=== PATIENT | female | born 1975 | race Caucasian/White ===

== ENCOUNTER → 2021-06-21 10:26 | Outpatient (CLI) | payer OTHER, SELFPAY ==
--- NOTE | ~2021-06-21 | MM_ITS ---
EXAMINATION: MM screening [facility] BI w joel HISTORY: Screening TECHNIQUE: Craniocaudal and mediolateral oblique 3-D tomosynthesis images were obtained and synthetic 2-D images were generated. CAD analysis was submitted and interpreted. COMPARISON: Comparison to multiple prior studies sequentially, with oldest reviewed study dated 06/2013. BREAST PARENCHYMAL COMPOSITION: There are scattered areas of fibroglandular density. FINDINGS: There is no evidence of suspicious mass, calcification, or architectural distortion to sugg est malignancy in either breast. There has been no suspicious interval change. IMPRESSION: 1. No mammographic evidence of malignancy. 2. Recommend routine screening mammography in one year. BI-RADS Category 1: Negative Reviewed, dictated and finalized at location A.
== END ==
PROVIDERS: PCP Internal Medicine Infectious Disease; Visit Provider Nurse Practitioner
DX: Z12.31 Encounter for screening mammogram for malignant neoplasm of breast (principal)
CPT/HCPCS: 77063; 77067

== ENCOUNTER → 2022-04-12 11:24 | Outpatient (CLI) | payer OTHER, SELFPAY ==
--- NOTE | ~2022-04-12 | US_ITS ---
EXAMINATION: US transvaginal DATE: 04/12/2022 11:45 INDICATION: Menorrhagia Comparison:No prior studies for comparison. TECHNIQUE: Multiple endovaginal sonographic images of the pelvis performed. FINDINGS: The uterus measures 8.8 x 4.3 x 5.2 cm. The endometrial complex measures 6 mm. The right ovary measures 2.3 x 1.6 x 1.9 cm and the left ovary measures 3.2 x 1.6 x 2.8 cm. There ar e small follicles in each ovary. Normal doppler signal in both ovaries. There is no free fluid in the pelvis. There are no abnormal masses seen on either side. IMPRESSION: 1. Unremarkable pelvic ultrasound. Reviewed, dictated and finalized at location A.
== END ==
PROVIDERS: PCP Internal Medicine Infectious Disease; Visit Provider Nurse Practitioner
DX: N92.0 Excessive and frequent menstruation with regular cycle (principal)
CPT/HCPCS: 76830

== ENCOUNTER 2022-05-28 02:59 | Day surgery (SDC) | payer OTHER, SELFPAY ==
[2022-05-16 14:42] VITALS: BMI 34.7
--- NOTE | 2022-05-16 14:51 | PC.NURSE ---
Report to the Outpatient Waiting Room, entrance under the green pavilion located off [facility], at time _1145_ on date _[id number]_. OR Time: _145pm_. - You and your visitor will be asked a series of questions to screen for COVID 19 for your protection. - Only one visitor is allowed at this time. - The patient visitor is requested to leave or wait in car when not with patient. - A mask is required within the hospital. Patients may have clear liquids (water, carbonated beverages, clear teas, apple juice) until 3 hours prior to surgery with a maximum of 20 ounces. - No food from midnight until time of surgery Take the following medications with a SIP of water the morning of surgery: ___None Medications to discontinue per physician All vitamins and supplements Date to take last [id number] Please no make-up, nail angolan, hairspray, perfume, deodorant, or body powder the day of surgery. No jewelry (including any body piercings) or valuables the day of surgery, leave them at home. Please take a shower or bath the night before, or the morning of, surgery with an antibacterial soap. Wear comfortable, loose fitting clothing. - Jewelry must be removed prior to entering the operating room. Rings and piercings that are not removed may be cut off. - The hospital will not accept responsibility for valuables. - Please leave all valuables, including medications, at home the day of surgery. If you are going home after surgery, a licensed putaway driver must drive you home. - NO public transportation without another adult. - We recommend that an adult stay with you for 24 hours following discharge. - We also recommend that you do not drive, make important decision, drink alcoholic beverages, or take any drugs that were not prescribed by your health care provider for at least 24 hours after your discharge time. Follow any additional instructions given to you from your surgeon. If you or anyone in your household have experienced Covid symptoms in the past week, please notify your surgeon or the nurse liaison at the phone number below for possible testing. Telephone instructions given to __Patient___and asked if any additional questions and then verbalized understanding. Patient advised to call surgeon office or pre surgery nurse liaison [phone] if any additional questions.
--- NOTE | 2022-05-28 09:42 | WPDHPUPDATE1 ---
History and Physical Update Update Date/Time: 05/28/22 09:42 History and Physical has been reviewed, including an updated exam of the patient. There are NO changes in the patient's condition. Risks, benefits, and alternatives have been discussed and questions answered. Patient agrees to proceed with procedure.
--- NOTE | 2022-05-28 09:42 | PM.HPGS ---
History of Present Illness History of Present Illness Consent: Risks, benefits, and alternatives have been discussed and questions answered. Patient agrees to proceed with procedure. Chief complaint: Menorrhagia Narrative: Yahaira Worthington is a 46 year old female with heavy cycles. Cycles are regular every 25 days but quite heavy changing pad every hour for 24hours. Pelvic ultrasound is unremarkable and hemoglobin is 12.3. It was recommended to proceed with D&C hysteroscopy to further evaluate. Risks of infection, bleeding, perforation, and possible pathology are reviewed. Patient voices understanding and agrees to proceed. Review of Systems Constitutional: Constitutional: Reports night sweats Genitourinary: Genitourinary: Reports urinary incontinence [facility] Past Medical History Medical History (Updated 05/28/22 @ 09:47 by Latonai Guerrero MD) History of cervical dysplasia Status post cryotherapy in [id number]'s [facility] (normal spontaneous vaginal delivery) X3 Surgical History Surgical History (Updated 05/28/22 @ 09:46 by Latonia Guerrero MD) History of Social History Social History Smoking status: Never smoker Living arrangements: with family Spiritual care concerns: No Meds Home Medications and Allergies Home Medications Medication Instructions Recorded Confirmed Type Drenamin 1 tab-cap PO TID 05/16/22 History berberine-herbal comb no.18 capsule 1 cap PO BID 05/16/22 05/16/22 History cetirizine 10 mg tablet 10 mg PO QAM 05/16/22 05/16/22 History cholecalciferol (vitamin D3) 125 125 mcg PO DAILY 05/16/22 05/16/22 History mcg (5,000 unit) tablet (Vitamin D3) montelukast 10 mg tablet 10 mg PO QAM 05/16/22 05/16/22 History multivitamin 1 tablet PO DAILY 05/16/22 05/16/22 History Allergies Allergy/AdvReac Type Severity Reaction Status Date / Time amoxicillin Allergy Severe Rash Verified 05/16/22 14:37 promethazine AdvReac Mild Nausea and Verified 05/16/22 14:37 Vomiting Exam Const: General: healthy appearing and alert Orientation/consciousness: patient oriented x3 Resp: Effort & Inspection: normal respiratory effort Auscultation: clear to auscultation bilaterally Cardio: Rate: regular rate Rhythm: regular rhythm GI: GI Palp: Yes Soft to palpation, No Tenderness to palpation present (GI) and No Palpable mass present : External Female Exam: normal external appearance Speculum Exam - Vagina: normal vaginal discharge and other (2nd degree cystocele and rectocele) Speculum Exam - Cervix: normal appearance of the cervix Bimanual exam- vagina & uterus: uterine size normal and consistency normal Bimanual Exam- Adnexa, other: normal adnexae and No adnexal tenderness Neuro: General: patient oriented x3 Assessment and Plan Assessment and plan (1) Menorrhagia: Code(s): N92.0 - Excessive and frequent menstruation with regular cycle Status: Acute Assessment and Plan: Plan to proceed with D&C hysteroscopy
--- NOTE | 2022-05-28 12:28 | P.PNAN_ITS ---
Anes - Initial Pre Proc Eval Procedure: Operation Date: 05/28/22 13:45 Proposed Procedures p Hysteroscopy Dilation and Curettage - Latonia Guerrero MD Date/Time: 05/28/22 12:28 Surgeon: Latonia Guerrero MD Pre Op Diagnosis: Menorrhagia Patient Data Age: 46 Gender: F Height: 1.68 m Weight: 97.7 kg Allergies Allergy/AdvReac Type Severity Reaction Status Date / Time amoxicillin Allergy Severe Rash Verified 05/16/22 14:37 promethazine AdvReac Mild Nausea and Verified 05/16/22 14:37 Vomiting Home Medications Medication Instructions Recorded Confirmed Type Drenamin 1 tab-cap PO TID 05/16/22 History berberine-herbal comb no.18 capsule 1 cap PO BID 05/16/22 05/16/22 History cetirizine 10 mg tablet 10 mg PO QAM 05/16/22 05/16/22 History cholecalciferol (vitamin D3) 125 125 mcg PO DAILY 05/16/22 05/16/22 History mcg (5,000 unit) tablet (Vitamin D3) montelukast 10 mg tablet 10 mg PO QAM 05/16/22 05/16/22 History multivitamin 1 tablet PO DAILY 05/16/22 05/16/22 History Patient hx anesthesia problems: none Family hx anesthesia problems: none Results Review: All pre-operative results and documents have been reviewed as part of the pre- operative evaluation. [facility] Past Medical History Medical History (Updated 05/28/22 @ 09:47 by Latonia Guerrero MD) History of cervical dysplasia Status post cryotherapy in [id number]'s (normal spontaneous vaginal delivery) X3 Surgical History Surgical History (Updated 05/28/22 @ 09:46 by Latonia Guerrero MD) History of Social History Social History Smoking status: Never smoker Living arrangements: with family Spiritual care concerns: No Anes - Eval Final PreProcedure Day of Procedure 05/28/22 12:28 Patient weight: obese Heart: regular rate and rhythm Lungs: clear to auscultation and normal air movement Airway: Mallampati scale class II Neurological: alert and oriented Last oral intake: >/= 8 hours ASA classification: II Emergent: no Anesthetic plan: proceed Anesthesia type and monitoring: general GIVS Results Review: All pre-operative results and documents have been reviewed as part of the pre- operative evaluation. Informed Consent: The patient's anesthetic plan and its attendant risks and benefits were discussed with the patient/family/POA. Questions were solicited and answers provided to the satisfaction of the patient/family/POA.
[2022-05-28] MEDS: LACTATED RINGERS 1,000 ML 30 ML IV CONT ×2 (12:30→14:57)
[2022-05-28] MEDS: ACETAMINOPHEN 500 MG TABLET 1000 MG PO (12:38)
[2022-05-28 13:00] VITALS: BP 118/69; PULSE 70; RESP 16; TEMP 36.8; O2SAT 99
[2022-05-28] MEDS: KETOROLAC 30 MG/ML VIAL (*BKC) IV PUSH (13:46)
--- NOTE | 2022-05-28 13:53 | W.PM.PROC2 ---
Procedure Note - Detailed Date of Procedure 05/28/22 Pre-op Diagnosis Menorrhagia Post-op Diagnosis Same Procedure Performed D&C hysteroscopy Surgeon Latonia Guerrero MD Anesthesia MAC and Local Findings Cervical stenosis, grossly normal-appearing endometrium, uterus sounds to 9cm and descends to the ischial spines with traction Description of Procedure The patient is taken to the operating room and placed under anesthesia in the dorsal lithotomy position. She was prepped and draped in the usual sterile fashion. [place] speculum was placed in the vagina and the cervix was grasped on the anterior lip with a tenaculum. With traction, the uterus comes down to this ischial spines. Cervix is injected in each quadrant with 1% lidocaine. The uterus is sounded to 9cm. The cervix is serially dilated and noted to be somewhat stenotic. The diagnostic hysteroscope was placed with no abnormalities noted it is removed. Medium sharp curette is used to curette the endometrium until a good uterine cry was noted in all areas. All instruments are removed. Sponge, instruments, and needle counts are correct per the OR staff. Patient was taken to the recovery room in stable condition after being awakened from anesthesia. Estimated Blood Loss 5 Drains No Packing No Pathology Yes (Endometrial curettings) Complications No immediate complications Condition Stable Disposition PACU
[2022-05-28 13:54] VITALS: BP 112/59; PULSE 61; RESP 16; O2SAT 91
[2022-05-28 14:25] VITALS: BP 119/65; PULSE 61; O2SAT 97
[2022-05-28 14:55] VITALS: BP 126/65; PULSE 59
[2022-05-28] MEDS: ONDANSETRON INJ 4 MG/2 ML VIAL IV PUSH (14:58)
[2022-05-28 15:20] VITALS: BP 112/68; PULSE 60
== END 2022-05-28 15:27 | disposition home or self-care (01) ==
PROVIDERS: PCP Internal Medicine Infectious Disease; Visit Provider Obstetrics & Gynecology Gynecology
PROC: 0U5B8ZZ Destruction of Endometrium, Via Natural or Artificial Opening Endoscopic (ICD-10-PCS; CPT 58563; principal; 2022-05-28 13:45)
DX: N92.0 Excessive and frequent menstruation with regular cycle (principal)
CPT/HCPCS: 58558; 88305; A9270; J1100; J1885; J2250; J2405; J2704; J3010; J7120

== ENCOUNTER → 2022-06-23 07:57 | Outpatient (CLI) | payer OTHER, SELFPAY ==
--- NOTE | ~2022-06-23 | MM_ITS ---
EXAMINATION: MM screening [facility] BI w joel HISTORY: Screening mammogram TECHNIQUE: Craniocaudal and mediolateral oblique 3-D tomosynthesis images were obtained and synthetic 2-D images were generated. CAD analysis was submitted and interpreted. COMPARISON: 07/11/2021, 06/28/2016 BREAST PARENCHYMAL COMPOSITION: The breasts are heterogeneously dense, which may obscure small masses . FINDINGS: There is no suspicious mass, calcification, or architectural distortion to suggest malignan cy in either breast. There has been no suspicious interval change. IMPRESSION: 1. No mammographic evidence of malignancy. 2. Recommend routine screening mammography in one year. BI-RADS Category 1: Negative Reviewed, dictated and finalized at location A.
== END ==
PROVIDERS: PCP Internal Medicine Infectious Disease; Visit Provider Nurse Practitioner
DX: Z12.31 Encounter for screening mammogram for malignant neoplasm of breast (principal)
CPT/HCPCS: 77063; 77067

== ENCOUNTER 2023-01-05 07:06 | Outpatient (CLI) | payer OTHER, SELFPAY ==
[2023-01-05 07:49] LABS: Hematocrit 38.2 % (37.0-47.0)
== END 2023-01-05 07:07 | disposition home or self-care (01) ==
PROVIDERS: PCP Internal Medicine Infectious Disease; Visit Provider Obstetrics & Gynecology Gynecology
DX: N92.0 Excessive and frequent menstruation with regular cycle (principal); Z01.818 Encounter for other preprocedural examination
CPT/HCPCS: 36415; 85014; 85018; 86850; 86900; 86901

== ENCOUNTER 2023-01-11 01:24 | Day surgery (SDC) | payer OTHER, SELFPAY ==
[2022-12-31 11:25] VITALS: BMI 35.5
--- NOTE | 2022-12-31 11:31 | PC.NURSE ---
Report to the Outpatient Waiting Room, entrance under the green pavilion located off [facility], at time 9:00 on date 01/11/23. Planned Procedure Time: 11:00. Time changes happen often and if your time is changed the preop area will call you the afternoon before. - You and your visitor will be asked to self-screen and do not enter if you have any COVID symptoms. - Only one visitor is requested with a max of two and NO children visitors are allowed at this time. - The patient visitor may be requested to leave or wait in car when not with patient due to distancing restrictions. - A mask is optional within the hospital at this time. Patients may have clear liquids (water, carbonated beverages, clear teas, apple juice) until 3 hours prior to surgery (8:00) with a maximum of 20 ounces. - No food from midnight until time of surgery Take the following medications with a SIP of water the morning of surgery: N/A DO NOT STOP ANY OF YOUR OTHER PRESCRIPTION MEDICATIONS PRIOR TO SURGERY EXCEPT THE FOLLOWING Medications to discontinue per physician: N/A Date to take last dose: N/A Please no make-up, nail palauan, hairspray, perfume, deodorant, or body powder the day of surgery. No jewelry (including any body piercings) or valuables the day of surgery, leave them at home. Please take a shower or bath the night before, or the morning of, surgery with an antibacterial soap. Wear comfortable, loose fitting clothing. - Jewelry must be removed prior to entering the operating room. Rings and piercings that are not removed may be cut off. - The hospital will not accept responsibility for valuables. - Please leave all valuables, including medications, at home the day of surgery. If you are going home after surgery, a licensed stacker driver must drive you home. - NO public transportation without another adult if you receive anesthesia. - We recommend that an adult stay with you for 24 hours following discharge. - We also recommend that you do not drive, make important decision, drink alcoholic beverages, or take any drugs that were not prescribed by your health care provider for at least 24 hours after your discharge time. Follow any additional instructions given to you from your surgeon. If you or anyone in your household have experienced Covid symptoms in the past week, please notify your surgeon or the nurse liaison at the phone number below for possible testing. Telephone instructions given to PT - GIULIA MOLINA and asked if any additional questions and then verbalized understanding. Patient advised to call surgeon office or pre surgery nurse liaison [phone] if any additional questions.
--- NOTE | 2023-01-10 08:22 | PM.IMHP ---
H&P: HPI History of Present Illness Date/Time: 01/10/23 08:22 Chief Complaint: stress incontinence Narrative: she is having hysterectomy and possible and P repair for dysfunctional uterine bleeding. I will perform a concomitant stress incontinence procedure Review of Systems Review of Systems: All systems reviewed & are unremarkable except as noted in HPI and below PMFSH Past Medical History Medical History History of cervical dysplasia Status post cryotherapy in [id number]'s (normal spontaneous vaginal delivery) X3 Surgical History Surgical History History of Social History Social History Smoking status: Never smoker Alcohol intake: never Substance use: never Substance use type: does not use Living arrangements: with family Spiritual care concerns: No Meds Home Medications and Allergies Home Medications Medication Instructions Recorded Confirmed Type cetirizine 10 mg tablet 10 mg PO QAM 05/16/22 12/31/22 History cholecalciferol (vitamin D3) 125 125 mcg PO DAILY 05/16/22 12/31/22 History mcg (5,000 unit) tablet (Vitamin D3) montelukast 10 mg tablet 10 mg PO QAM 05/16/22 12/31/22 History multivitamin 1 tablet PO DAILY 05/16/22 12/31/22 History L.acidop,casei,lactis,rham-B.lact,john 1 cap PO DAILY 12/31/22 12/31/22 History 625 mg (10 billion cell) capsule (Advanced Probiotic) Allergies Allergy/AdvReac Type Severity Reaction Status Date / Time amoxicillin Allergy Severe Rash Verified 12/31/22 11:22 promethazine AdvReac Mild Nausea and Verified 12/31/22 11:22 Vomiting Exam Narrative: no acute distress normal breathing alert orient x3 urethral mobility Assessment and Plan Assessment and plan (1) SOFYA (stress urinary incontinence, female): Code(s): N39.3 - Stress incontinence (female) (male) Status: Acute Assessment and Plan: urethral sling. Understands risks of bleeding, infection, damage to the very tract, vaginal mesh extrusion, urinary tract mesh erosion, obstructive voiding requiring secondary procedure, hip and leg pain, dyspareunia, recurrent or persistent incontinence. She agrees to proceed
[2023-01-11] VITALS (10 sets, daily range): BP systolic 105–128; BP diastolic 56–76; PULSE 58–71; RESP 11–18; TEMP 36.3–37.1; O2SAT 94–100
--- NOTE | 2023-01-11 07:08 | WPDHPUPDATE1 ---
History and Physical Update Update Date/Time: 01/11/23 07:08 History and Physical has been reviewed, including an updated exam of the patient. There are NO changes in the patient's condition. Risks, benefits, and alternatives have been discussed and questions answered. Patient agrees to proceed with procedure.
[2023-01-11] MEDS: LACTATED RINGERS 1,000 ML 30 ML IV CONT ×3 (09:50→15:15)
[2023-01-11] MEDS: ACETAMINOPHEN 500 MG TABLET 1000 MG PO (09:51)
[2023-01-11] MEDS: KETOROLAC 15 MG/ML VIAL (*BKC) IV PUSH (09:51)
--- NOTE | 2023-01-11 10:21 | PM.IMHP ---
H&P: HPI History of Present Illness Date/Time: 01/11/23 10:21 Chief Complaint: menorrhagia, cystocele, rectocele, GSI Narrative: The patient is a 47 yo A2 with regular and heavy cycles. Patient underwent D&C hysterscopy with benign findings. In addition, she has had worsening GSI and vaginal pressure. She attempted to use pessary but it made the incontinence worse. She has decided on surgical management. Plan laparoscopic assisted vaginal hysterectomy with anterior and posterior vaginal repair. In addition, Dr. Grant will be performing a urethral sling prior to my portion. Risks of infection, bleeding, injury to internal organs (khanh. bowel, bladder, ureters, ovaries), general anesthesia, and DVT were discussed. Risks of urethral sling were reviewed by Dr. Grant. Patient voices understanding and agrees to proceed. Review of Systems Constitutional: Constitutional: Reports night sweats Genitourinary: Genitourinary: Reports urinary incontinence PMFSH Past Medical History Medical History (Updated 01/11/23 @ 10:36 by Latonia Guerrero MD) History of cervical dysplasia Status post cryotherapy in [id number]'s (normal spontaneous vaginal delivery) X3 Surgical History Surgical History (Updated 01/11/23 @ 10:29 by Latonia Guerrero MD) History of History of hysteroscopy 05/09 Family History Family History (Updated 01/11/23 @ 10:34 by Latonia Guerrero MD) Father Diabetes mellitus Hypertension Mother Small bowel carcinoma Valero syndrome Sibling Valero syndrome Social History Social History Smoking status: Never smoker Alcohol intake: never Substance use: never Substance use type: does not use Living arrangements: with family Spiritual care concerns: No Meds Home Medications and Allergies Home Medications Medication Instructions Recorded Confirmed Type cetirizine 10 mg tablet 10 mg PO QAM 05/16/22 12/31/22 History cholecalciferol (vitamin D3) 125 125 mcg PO DAILY 05/16/22 12/31/22 History mcg (5,000 unit) tablet (Vitamin D3) montelukast 10 mg tablet 10 mg PO QAM 05/16/22 12/31/22 History multivitamin 1 tablet PO DAILY 05/16/22 12/31/22 History L.acidop,casei,lactis,rham-B.lact,john 1 cap PO DAILY 12/31/22 12/31/22 History 625 mg (10 billion cell) capsule (Advanced Probiotic) Allergies Allergy/AdvReac Type Severity Reaction Status Date / Time amoxicillin Allergy Severe Rash Verified 01/11/23 09:28 promethazine AdvReac Mild Nausea and Verified 01/11/23 09:28 Vomiting Vital Signs Vital Signs - 24 hr 01/11/23 09:13 Temperature 98.0 F Pulse Rate 71 Respiratory Rate 18 Blood Pressure 127/74 Pulse Oximetry 100 Oxygen Delivery Room Air Exam Const: General: healthy appearing and alert Orientation/consciousness: patient oriented x3 Resp: Effort & Inspection: normal respiratory effort GI: GI Palp: Yes Soft to palpation, No Tenderness to palpation present (GI) and No Palpable mass present : External Female Exam: normal external appearance Speculum Exam - Vagina: normal appearance of the vagina, normal vaginal discharge and other (second degree cystocele and rectocele) Speculum Exam - Cervix: normal appearance of the cervix Bimanual exam- vagina & uterus: uterine size normal and consistency normal Bimanual Exam- Adnexa, other: normal adnexae and No adnexal tenderness Neuro: General: patient oriented x3 Assessment and Plan Assessment and plan (1) Menorrhagia: Code(s): N92.0 - Excessive and frequent menstruation with regular cycle Status: Acute Assessment and Plan: plan LAVH (2) Cystocele with rectocele: Code(s): N81.10 - Cystocele, unspecified; N81.6 - Rectocele Status: Acute Assessment and Plan: plan anterior and posterior repair (3) SOFYA (stress urinary incontinence, female): Code(s): N39.3 - Stress incon
--- NOTE | 2023-01-11 10:50 | P.PNAN_ITS ---
Anes - Initial Pre Proc Eval Procedure: Operation Date: 01/11/23 11:00 Proposed Procedures p Urethral Sling - Bryce Grant MD s Laparoscopic Assisted Vaginal Hysterectomy, Anterior and Posterior Vaginal Repair - Latonia Guerrero MD Date/Time: 01/11/23 10:50 Surgeon: Bryce Grant MD Pre Op Diagnosis: stress incontinence Patient Data Age: 47 Gender: F Height: 1.68 m Weight: 102.5 kg Last Vital Signs Temp 98.0 F 01/11/23 09:13 Pulse 71 01/11/23 09:13 Resp 18 01/11/23 09:13 BP 127/74 01/11/23 09:13 Pulse Ox 100 01/11/23 09:13 O2 Del Method Room Air 01/11/23 09:13 Allergies Allergy/AdvReac Type Severity Reaction Status Date / Time amoxicillin Allergy Severe Rash Verified 01/11/23 09:28 promethazine AdvReac Mild Nausea and Verified 01/11/23 09:28 Vomiting Home Medications Medication Instructions Recorded Confirmed Type cetirizine 10 mg tablet 10 mg PO QAM 05/16/22 12/31/22 History cholecalciferol (vitamin D3) 125 125 mcg PO DAILY 05/16/22 12/31/22 History mcg (5,000 unit) tablet (Vitamin D3) montelukast 10 mg tablet 10 mg PO QAM 05/16/22 12/31/22 History multivitamin 1 tablet PO DAILY 05/16/22 12/31/22 History L.acidop,casei,lactis,rham-B.lact,john 1 cap PO DAILY 12/31/22 12/31/22 History 625 mg (10 billion cell) capsule (Advanced Probiotic) Patient hx anesthesia problems: none Family hx anesthesia problems: none Results Review: All pre-operative results and documents have been reviewed as part of the pre- operative evaluation. PMFSH Past Medical History Medical History (Updated 01/11/23 @ 10:36 by Latonia Guerrero MD) History of cervical dysplasia Status post cryotherapy in [id number]'s (normal spontaneous vaginal delivery) X3 Surgical History Surgical History (Updated 01/11/23 @ 10:29 by Latonia Guerrero MD) History of History of hysteroscopy 05/09 Family History Family History (Updated 01/11/23 @ 10:34 by Latonia Guerrero MD) Father Diabetes mellitus Hypertension Mother Small bowel carcinoma Valero syndrome Sibling Valero syndrome Social History Social History Smoking status: Never smoker Alcohol intake: never Substance use: never Substance use type: does not use Living arrangements: with family Spiritual care concerns: No Anes - Eval Final PreProcedure Day of Procedure 01/11/23 10:50 Patient weight: obese Heart: regular rate and rhythm Lungs: clear to auscultation Airway: Mallampati scale class II Neurological: alert and oriented Last oral intake: >/= 8 hours ASA classification: II Emergent: no Anesthetic plan: proceed Anesthesia type and monitoring: general ETT and standard monitoring Results Review: All pre-operative results and documents have been reviewed as part of the pre-operative evaluation. Informed Consent: The patient's anesthetic plan and its attendant risks and benefits were discussed with the patient/family/POA. Questions were solicited and answers provided to the satisfaction of the patient/family/POA.
[2023-01-11] MEDS: ceFAZolin 2 GM/D5W 50 ML 2 GM/50 ML BAG IVPB (11:14)
[2023-01-11] MEDS: BUPIVACAINE/EPINEPHRINE 0.5% 10 ML VIAL INFILTRATE (11:45)
--- NOTE | 2023-01-11 11:56 | P.OP_ITS ---
Procedure Note - Detailed Date of Procedure 01/11/23 Pre-op Diagnosis stress incontinence Post-op Diagnosis Same Procedure Performed mid urethral sling cystoscopy Surgeon Bryce Grant MD Anesthesia General Indications This is a female with confirm stress urinary incontinence. She desires surgical correction. She understands the risks of bleeding, infection, injury to the urinary tract, vaginal mesh extrusion, urinary tract mesh erosion, obstructive voiding requiring a secondary procedure, hip and leg pain, dyspareunia, inability to improve overactive bladder symptoms. She agrees to proceed. Description of Procedure She was correctly identified. Informed consent obtained. She was brought the operating room. She was given appropriate anesthesia. She was given appropriate perioperative antibiotics. A time-out performed. I marked out the site of the inner thigh incisions. I anesthetized the skin and made those incisions. I anesthetized the anterior vaginal wall over the mid urethra. I made a 1 cm incision. I dissected out laterally taking great care not to injure the refilled vaginal wall. I passed the helical trocars. First on the left. Then on the right. I did this from the thigh incision towards the vaginal incision. The sling was connected to the trocars and brought out through the thigh incision. I tensioned the sling appropriately. I cut and the plastic sheaths. I then closed the incision with 2 0 Vicryl. On cystoscopy there is no tumors or surgical artifact. There was no surgical artifact in the urethra. I cut the excess sling material. Close incisions with glue. She was then turned over to her manager wealth management for the remainder of her surgery. Implants Urethral sling Drains No Packing No Pathology None sent Complications No immediate complications Condition Stable Disposition PACU
[2023-01-11] MEDS: LIDO 1%/EPINEPHRINE 1:100,000 20 ML VIAL 10 ML INFILTRATE (12:11)
--- NOTE | 2023-01-11 13:47 | W.PM.PROC2 ---
Procedure Note - Detailed Date of Procedure 01/11/23 Pre-op Diagnosis Menorrhagia cystocele and rectocele stress incontinence Post-op Diagnosis Same Procedure Performed diagnostic laparoscopy, total vaginal hysterectomy, anterior-posterior vaginal repair urethral sling performed by Dr. Grant Surgeon Latonia Guerrero MD Anesthesia General Findings laparoscopy revealed no adhesions; with traction the uterus descends to the spines +3; small upper vaginal second-degree cystocele; large 2nd degree rectocele Description of Procedure The patient is taken to the operating room and placed under anesthesia in the dorsal lithotomy position. Patient had just completed the urethral sling by Dr. Grant and Sweet catheter was already in place. The bivalve speculum was placed in the vagina and the cervix grasped on the anterior lip with a tenaculum. The acorn manipulator was also placed. The speculum was removed. Attention was then turned to the abdomen where a vertical skin incision was made at the base of the umbilicus. The abdomen is tented and the Veress needle placed. Opening patient pressure was 3mmHg. Water drop test is normal. Pneumoperitoneum was obtained to a patient pressure of 15mmHg. The Veress needle was then removed and the 5mm Optiview trocar was placed. Intra-abdominal placement was confirmed with the laparoscope. The patient was placed in Trendelenburg and a 5mm skin incision was made above the symphysis pubis in the midline. The 5mm trocars placed under direct visualization. The blunt probe was used to investigate the pelvis with no abnormalities noted. The bladder flap appears to have minimal adhesions. The trocars were left in place but the pneumoperitoneum was reduced. Attention was returned to the vagina. The acorn manipulator is removed. The medium weighted speculum was placed posteriorly and a Annalise retractor placed anteriorly. The vaginal mucosa was injected in a circumferential manner around the cervix with 1% lidocaine with epinephrine. A scalpel then used to incise in a circumferential manner. The vaginal mucosa was dissected off anteriorly using sharp and blunt dissection. Once the peritoneum was entered the Annalise retractor was replaced intraperitoneally E. The vaginal mucosa was dissected off posteriorly using sharp and blunt dissection. Once the peritoneum was entered, the long weighted speculum was placed. The cardinal and uterosacral ligaments were serially clamped, transected, suture ligated with 0 Vicryl, and tagged for future use. The uterine vessels are clamped, transected, and suture ligated with 0 Vicryl. The posterior fundus is grasped with a sharp towel clamp and delivered through the cul-de-sac. The utero-ovarian ligament is clamped, transected, and suture ligated with 0 Vicryl. The specimen was amputated. Good hemostasis is noted at all pedicles except the right uterosacral ligament. This is grasped with a Z clamp as the previous tag had been pulled through the pedicle was tied off using 0 Vicryl with 2 Annalise stitches for hemostasis. All pedicles are easily visible and noted to be hemostatic. The peritoneum was grasped anteriorly with a Peon. The long weighted speculum was removed and the medium weighted speculum was placed. The posterior peritoneum was grasped with a Peon. The peritoneum was closed using 0 Ethibond in a pursestring fashion incorporating the previously tagged the uterosacral and cardinal ligaments. All tags are were cut. The vaginal cuff was closed using 0 Vicryl in a running locked fashion. Additional arekom-wd-drrea suture was required in the midline for hemostasis. Attention was then turned to the anterior vagina. There is a very small upper vaginal cystocele grasped with Allis clamps at 5 and 7:00 a.m.. The scalpel was used to incise in a horizontal manner between the Allis clamps. The in incision in the midline is made with Metzenbaum scissors. The dissecti
--- NOTE | 2023-01-11 14:01 | PM.DS ---
DS: Admitting Diagnosis Discharge Date 01/12/23 <Javon Campbell MD - Last Filed: 01/12/23 10:08> Admitting Diagnosis menorrhagia cystocele and rectocele genuine stress incontinence <Latonia Guerrero MD - Last Filed: 01/11/23 14:03> DS: Discharge Diagnosis Discharge Diagnosis (1) Status post laparoscopic assisted vaginal hysterectomy (LAVH): Code(s): Z90.710 - Acquired absence of both cervix and uterus <Latonia Guerrero MD - Last Filed: 01/11/23 14:03> Status: Acute <Latonia Guerrero MD - Last Filed: 01/11/23 14:03> Assessment and Plan: status post anterior and posterior vaginal repair status post urethral sling by Dr. Grant <Latonia Guerrero MD - Last Filed: 01/11/23 14:03> (2) Menorrhagia: Code(s): N92.0 - Excessive and frequent menstruation with regular cycle <Latonia Guerrero MD - Last Filed: 01/11/23 14:03> Status: Acute <Latonia Guerrero MD - Last Filed: 01/11/23 14:03> (3) SOFYA (stress urinary incontinence, female): Code(s): N39.3 - Stress incontinence (female) (male) <Latonia Guerrero MD - Last Filed: 01/11/23 14:03> Status: Acute <Latonia Guerrero MD - Last Filed: 01/11/23 14:03> (4) Cystocele with rectocele: Code(s): N81.10 - Cystocele, unspecified; N81.6 - Rectocele <Latonia Guerrero MD - Last Filed: 01/11/23 14:03> Status: Acute <Latonia Guerrero MD - Last Filed: 01/11/23 14:03> DS: Summary Hospital Course Hospital Course: At the time of discharge the patient was tolerating regular diet, voiding, and ambulating without difficulty. <Latonia Guerrero MD - Last Filed: 01/11/23 14:03> Status at Discharge Functional status at discharge: independent ambulation <Latonia Guerrero MD - Last Filed: 01/11/23 14:03> Overall status at discharge: patient is progressing back to baseline <Latonia Guerrero MD - Last Filed: 01/11/23 14:03> Time Spent with Patient Time attestation: Total time spent providing and/or coordinating discharge services: <Latonia Guerrero MD - Last Filed: 01/11/23 14:03> DS: Data Data Completed and Pending Pending studies at discharge: Pending at discharge 01/11/23 12:44 Surgical [PTH] Routine <Latonia Guerrero MD - Last Filed: 01/11/23 14:03> Discharge Plan Discharge Patient Disposition: Home, Self-Care <Latonia Guerrero MD - Last Filed: 01/11/23 14:03> Discharge Instructions: Pelvic rest for 6 weeks no lifting over 10 lb <Latonia Guerrero MD - Last Filed: 01/11/23 14:03> Stand Alone Forms: General Discharge Instructions <Latonia Guerrero MD - Last Filed: 01/11/23 14:03> Follow-up/Referrals: Bryce Grant MD [Physician] - Call for Appointment Latonia Guerrero MD [Physician] - 1 Week <Latonia Guerrero MD - Last Filed: 01/11/23 14:03> Discharge Medications: No Action Advanced Probiotic 625 mg (10 billion cell) Capsule 1 cap PO DAILY multivitamin Tablet 1 tablet PO DAILY cetirizine 10 mg tablet 10 mg PO QAM montelukast 10 mg tablet 10 mg PO QAM cholecalciferol (vitamin D3) [Vitamin D3] 125 mcg (5,000 unit) Tablet 125 mcg PO DAILY <Latonia Guerrero MD - Last Filed: 01/11/23 14:03>
[2023-01-11] MEDS: fentaNYL CITRATE INJ (*CRX) 100 MCG/2 ML VIAL 25 MCG IV PUSH ×4 (14:20→14:54)
[2023-01-11] MEDS: ONDANSETRON INJ 4 MG/2 ML VIAL IV PUSH (15:15)
[2023-01-11] MEDS: KETOROLAC 30 MG/ML VIAL (*BKC) IV PUSH (15:54)
--- NOTE | 2023-01-11 16:08 | OBPPTRN ---
1531 Patient transferred to post room #283 via ( ). Support person present. Oriented to unit, room, information board, admission packet and security measures. Patient verbalizes understanding.
[2023-01-11] MEDS: HYDROcodone/acetaminophen (*CRX) 10-325 MG TABLET 1 TAB PO ×2 (17:50→20:36)
[2023-01-11] MEDS: SIMETHICONE 80 MG TAB.CHEW PO ×2 (19:17→23:52)
--- NOTE | 2023-01-11 20:25 | PC.NURSE ---
Patient called RN to bedside at 2007 after using restroom, stating that her vaginal packing had fallen out. Vaginal packing fully saturated with blood and fell into urine hat. Packing thrown into trash. At 2019 patient called to RN to bedside for feeling a gush in her a peripad. Small amount of blood covering 1/3 of pad visualized in pad. Linsey-pad replaced and returned to bed without any difficulty. Patient denies dizziness this time. Will continue to monitor.
[2023-01-11] MEDS: IBUPROFEN 600 MG TABLET PO (23:49)
[2023-01-11] MEDS: HYDROcodone/acetaminophen (*CRX) 5-325 MG TABLET 1 TAB PO (23:49)
[2023-01-12] MEDS: HYDROcodone/acetaminophen (*CRX) 5-325 MG TABLET 1 TAB PO ×3 (03:07→10:24)
[2023-01-12 03:12] VITALS: BP 99/51; PULSE 81; RESP 16; TEMP 37; O2SAT 97
[2023-01-12] MEDS: SIMETHICONE 80 MG TAB.CHEW PO ×2 (06:55→10:24)
[2023-01-12] MEDS: MONTELUKAST SODIUM 10 MG TABLET PO (08:57)
[2023-01-12] MEDS: LORATADINE 10 MG TABLET PO (08:57)
[2023-01-12 09:12] VITALS: BP 119/59; PULSE 90; RESP 18; TEMP 36.9; O2SAT 98
--- NOTE | 2023-01-12 10:01 | PM.GYNPNOP ---
TOY CONSULTANT - A/P Assessment and plan (1) Status post laparoscopic assisted vaginal hysterectomy (LAVH): Code(s): Z90.710 - Acquired absence of both cervix and uterus Status: Acute Plan POD1 s/p LAVH sling. She is doing well. Will discharge home. Discharge precautions discussed. Postoperative Procedures: Procedures Operation Date: 01/11/23 11:00 Actual Procedure Side Surgeon p Urethral Sling Not Applicable Bryce Grant MD s Laparoscopic Assisted Vaginal Hysterectomy, Anterior and Posterior Vaginal Repair Not Applicable Latonia Guerrero MD Time Spent With Patient Time: Total time spent is greater than 50% in coordination of care (as documented) at patient's floor/unit and/or counseling patient: Time with patient: less than 15 minutes TOY CONSULTANT- PN:Subj Post-Op Subjective Date/time seen: 01/12/23 10:01 Interval history: She had nausea/emesis last pm and tolerated reg diet today. She has ambulated, no flatus, no leg pain with ambulation. She has adequate pain control with medications. Packing came out yesterday. Min bleeding. Subjective: pain is well controlled and patient is tolerating oral intake Review of Systems Review of Systems: All systems reviewed & are unremarkable except as noted in HPI and below Cardiovascular: Cardiovascular: Reports no additional cardiovascular complaints Respiratory: Respiratory: Reports no additional respiratory complaints Genitourinary: Genitourinary: Reports no additional female genitourinary complaints Musculoskeletal: Musculoskeletal: Reports no additional musculoskeletal complaints Exam Const: General: comfortable and no acute distress Orientation/consciousness: oriented to person, oriented to place and oriented to time Resp: Auscultation: clear to auscultation bilaterally Cardio: Rate: regular rate Rhythm: regular rhythm GI: GI Palp: Yes Soft to palpation and No Tenderness to palpation present (GI) Auscultation: normal bowel sounds Other: Incisions healing no signs of infection : Other: minimal spotting on pad Neuro: General: oriented to person, oriented to place and oriented to time Extrem: General: normal to inspection and no calf tenderness Psych: Mental Status: mental status grossly normal TOY CONSULTANT - PN: Obj Data Vital Signs Vital Signs: Vital Signs - 24 hr 01/11/23 14:00 01/11/23 14:15 01/11/23 14:30 Temperature 98.6 F Pulse Rate 64 63 60 Respiratory Rate 12 16 11 L Blood Pressure 105/61 116/57 L 116/76 Pulse Oximetry 100 100 100 Oxygen Delivery Room Air Simple Face Mask Simple Face Mask Oxygen Flow Rate 8 8 01/11/23 14:45 01/11/23 15:00 01/11/23 15:15 Temperature Pulse Rate 58 L 60 61 Respiratory Rate 14 14 16 Blood Pressure 116/72 109/60 111/74 Pulse Oximetry 94 97 98 Oxygen Delivery Room Air Room Air Room Air Oxygen Flow Rate 01/11/23 15:31 01/11/23 15:31 01/11/23 19:40 Temperature 97.4 F L 97.8 F Pulse Rate 61 62 Respiratory Rate 16 18 Blood Pressure 124/56 L 128/58 L Pulse Oximetry 98 98 Oxygen Delivery Room Air Oxygen Flow Rate 01/11/23 23:50 01/12/23 03:12 Temperature 98.8 F 98.6 F Pulse Rate 67 81 Respiratory Rate 18 16 Blood Pressure 124/59 L 99/51 L Pulse Oximetry 96 97 Oxygen Delivery Oxygen Flow Rate Intake/Output Intake/Output: Intake & Output 01/09/23 01/10/23 01/11/23 01/12/23 23:59 23:59 23:59 23:59 Intake Total 2450 500 Output Total 500 200 Balance 1950 300 Meds/Results Medications: Active Medications Generic Name Dose Route Start Last Admin Trade Name Freq PRN Reason Stop Dose Admin Hydrocodone Bitart/Acetaminophen 1 tab 01/11/23 15:27 01/12/23 06:54 Hydrocodone/Acetaminophen (*Crx) 5-325 Mg Tablet PO 1 tab Q3H PRN Administration Pain Rated 5 or Less Hydrocodone Bitart/Acetaminophen 1 tab 01/11/23 15:27 01/11/23 20:36 Hydrocodone/Acetaminophen (*Crx) 10-325 Mg Tablet PO 1 tab Q3H PRN Administration
== END 2023-01-12 11:25 | disposition home or self-care (01) ==
LOC: ANHSURGERY 14:03 → ANHOB2 15:47
PROVIDERS: Obstetrics & Gynecology Gynecology; PCP Internal Medicine Infectious Disease; Visit Provider Urology
PROC: (CPT 57288; principal; 2023-01-11 11:00)
PROC: 0UT9FZZ Resection of Uterus, Via Natural or Artificial Opening With Percutaneous Endoscopic Assistance (ICD-10-PCS; CPT 57260; 2023-01-11 11:00)
DX: N92.0 Excessive and frequent menstruation with regular cycle (principal); N81.10 Cystocele, unspecified; N81.6 Rectocele; N39.3 Stress incontinence (female) (male); D25.1 Intramural leiomyoma of uterus; E66.9 Obesity, unspecified; Z68.36 Body mass index [BMI] 36.0-36.9, adult
CPT/HCPCS: 57288; 57260; 58550; 36415; 85014; 85018; 86850; 86900; 86901; 88307; 99199; A9270; C1771; J0690; J1100; J1885; J2250; J2405; J2704; J2710; J3010; J7030; J7120

== ENCOUNTER 2023-07-29 06:09 | Day surgery (SDC) | payer OTHER, SELFPAY ==
[2023-07-18 14:52] VITALS: BMI 33.7
[2023-07-29 06:40] VITALS: BP 114/81; PULSE 76; RESP 14; TEMP 36.9; O2SAT 99
[2023-07-29] MEDS: LACTATED RINGERS 1,000 ML 150 ML IV CONT (07:30)
--- NOTE | 2023-07-29 07:47 | P.PNAN_ITS ---
Anes - Initial Pre Proc Eval Procedure: Operation Date: 07/29/23 08:00 Proposed Procedures p Screening Colonoscopy - Miguel Webber MD Date/Time: 07/29/23 07:47 Surgeon: Miguel Webber MD Pre Op Diagnosis: Neoplasm Screening Patient Data Age: 48 Gender: F Height: 1.68 m Weight: 93.1 kg Last Vital Signs Temp 36.9 C 07/29/23 06:40 Pulse 76 07/29/23 06:40 Resp 14 07/29/23 06:40 BP 114/81 07/29/23 06:40 Pulse Ox 99 07/29/23 06:40 O2 Del Method Room Air 07/29/23 06:40 Allergies Allergy/AdvReac Type Severity Reaction Status Date / Time amoxicillin Allergy Severe Rash Verified 07/29/23 06:39 promethazine AdvReac Mild Nausea and Verified 07/29/23 06:39 Vomiting Home Medications Medication Instructions Recorded Confirmed Type cetirizine 10 mg tablet 10 mg PO QAM 05/16/22 07/29/23 History cholecalciferol (vitamin D3) 125 125 mcg PO DAILY 05/16/22 07/29/23 History mcg (5,000 unit) tablet (Vitamin D3) montelukast 10 mg tablet 10 mg PO QAM 05/16/22 07/29/23 History multivitamin 1 tablet PO DAILY 05/16/22 07/29/23 History L.acidop,casei,lactis,rham-B.lact,john 1 cap PO DAILY 12/31/22 07/29/23 History 625 mg (10 billion cell) capsule (Advanced Probiotic) Patient hx anesthesia problems: none Family hx anesthesia problems: none Results Review: All pre-operative results and documents have been reviewed as part of the pre- operative evaluation. [facility] Past Medical History Medical History History of cervical dysplasia Status post cryotherapy in [id number] (normal spontaneous vaginal delivery) X3 Surgical History Surgical History (Updated 07/29/23 @ 07:47 by Clarke Pemberton MD) H/O: hysterectomy History of History of hysteroscopy 05/09 Family History Family History Father Diabetes mellitus Hypertension Mother Small bowel carcinoma Valero syndrome Sibling Valero syndrome Social History Social History Smoking status: Never smoker Alcohol intake: never Substance use: never Substance use type: does not use Living arrangements: with family Spiritual care concerns: No Anes - Eval Final PreProcedure Day of Procedure 07/29/23 07:47 Patient weight: obese Heart: regular rate and rhythm Lungs: clear to auscultation Airway: Mallampati scale class II Neurological: alert and oriented Last oral intake: >/= 8 hours ASA classification: II Emergent: no Anesthetic plan: proceed Anesthesia type and monitoring: general GIVS and standard monitoring Results Review: All pre-operative results and documents have been reviewed as part of the pre- operative evaluation. Informed Consent: The patient's anesthetic plan and its attendant risks and benefits were discussed with the patient/family/POA. Questions were solicited and answers provided to the satisfaction of the patient/family/POA.
--- NOTE | 2023-07-29 07:54 | PM.HPGS ---
History of Present Illness History of Present Illness Consent: Risks, benefits, and alternatives have been discussed and questions answered. Patient agrees to proceed with procedure. Chief complaint: Neoplasm Screening Narrative: Yahaira Worthington is a 48 year old female here for screening colonoscopy Review of Systems Constitutional: Constitutional: Denies headache(s) and Denies weakness Eyes: Eyes: Denies blurry vision ENT: Reports Normal hearing present, Denies headache(s) and Denies neck pain Cardiovascular: Cardiovascular: Denies chest pain and Denies dyspnea Respiratory: Respiratory: Denies dyspnea Gastrointestinal: Gastrointestinal: Reports no additional gastrointestinal complaints Genitourinary: Genitourinary: Denies dysuria Musculoskeletal: Musculoskeletal: Denies neck pain Integumentary/Breasts: Skin/Breast: Denies dry skin Neurologic: Reports Normal hearing present, Denies headache(s) and Denies weakness Psychiatric: Psychiatric: Denies anxiety Endocrine: Endocrine: Denies change in body appearance Hematologic/Lymphatic: Hematologic/Lymphatic: Denies easy bleeding Allergic/Immunologic: Allergic/Immunologic: Denies urticaria PMFSH Past Medical History Medical History (Updated 07/29/23 @ 07:56 by Miguel Webber MD) Colon cancer screening History of cervical dysplasia Status post cryotherapy in [id number] (normal spontaneous vaginal delivery) X3 Surgical History Surgical History (Updated 07/29/23 @ 07:47 by lCarke Pemberton MD) H/O: hysterectomy History of History of hysteroscopy 05/09 Family History Family History Father Diabetes mellitus Hypertension Mother Small bowel carcinoma Valero syndrome Sibling Valero syndrome Social History Social History Smoking status: Never smoker Alcohol intake: never Substance use: never Substance use type: does not use Living arrangements: with family Spiritual care concerns: No Meds Home Medications and Allergies Home Medications Medication Instructions Recorded Confirmed Type cetirizine 10 mg tablet 10 mg PO QAM 05/16/22 07/29/23 History cholecalciferol (vitamin D3) 125 125 mcg PO DAILY 05/16/22 07/29/23 History mcg (5,000 unit) tablet (Vitamin D3) montelukast 10 mg tablet 10 mg PO QAM 05/16/22 07/29/23 History multivitamin 1 tablet PO DAILY 05/16/22 07/29/23 History L.acidop,casei,lactis,rham-B.lact,john 1 cap PO DAILY 12/31/22 07/29/23 History 625 mg (10 billion cell) capsule (Advanced Probiotic) Allergies Allergy/AdvReac Type Severity Reaction Status Date / Time amoxicillin Allergy Severe Rash Verified 07/29/23 06:39 promethazine AdvReac Mild Nausea and Verified 07/29/23 06:39 Vomiting Vital Signs Vital Signs - 24 hr 07/29/23 06:40 Temperature 98.5 F Pulse Rate 76 Respiratory Rate 14 Blood Pressure 114/81 Pulse Oximetry 99 Oxygen Delivery Room Air Exam Const: General: comfortable and no acute distress HENMT: Face/Nose/Sinus: Normal nares present Eyes: General: appearance normal, both eyes and all related structures Neck: Neck: no JVD Resp: Auscultation: clear to auscultation bilaterally Cardio: Rate: regular rate Rhythm: regular rhythm GI: Inspection: non-distended GI Palp: Yes Soft to palpation Skin: General skin exam: normal color Neuro: General: gait normal Speech: normal speech Extrem: General: normal to inspection Psych: Mental Status: mental status grossly normal Assessment and Plan Assessment and plan (1) Colon cancer screening: Code(s): Z12.11 - Encounter for screening for malignant neoplasm of colon Status: Acute Assessment and Plan: colonoscopy
[2023-07-29 08:16] VITALS: BP 108/64; PULSE 72; RESP 16; O2SAT 100
[2023-07-29 08:26] VITALS: BP 109/61; PULSE 65; RESP 18; O2SAT 100
--- NOTE | 2023-07-29 08:32 | WPDANESPN ---
Anes - Prog Note Post-Op Date/Time: 07/29/23 08:32 Cardiovascular status: normal Respiratory status: normal Airway patency: baseline Mental status: baseline Post-Op hydration status: normal Vital Signs: Last Vital Signs Temp 36.9 C 07/29/23 06:40 Pulse 72 07/29/23 08:16 Resp 16 07/29/23 08:16 BP 108/64 07/29/23 08:16 Pulse Ox 100 07/29/23 08:16 O2 Del Method Room Air 07/29/23 08:16 Pain Score (VAS): 0/10 I/O: Intake & Output 07/28/23 07/29/23 07/29/23 23:59 07:59 15:59 Intake Total 700 Balance 700 Patient Feedback: Patient satisfied with anesthetic care.
[2023-07-29 08:36] VITALS: BP 114/65; PULSE 80; RESP 18; O2SAT 99
== END 2023-07-29 08:51 | disposition home or self-care (01) ==
PROVIDERS: PCP Internal Medicine Infectious Disease; Visit Provider Internal Medicine Gastroenterology
PROC: 0DJD8ZZ Inspection of Lower Intestinal Tract, Via Natural or Artificial Opening Endoscopic (ICD-10-PCS; CPT 45378; principal; 2023-07-29 08:00)
DX: Z12.11 Encounter for screening for malignant neoplasm of colon (principal); D12.4 Benign neoplasm of descending colon; K57.30 Diverticulosis of large intestine without perforation or abscess without bleeding; K64.8 Other hemorrhoids
CPT/HCPCS: 45385

== ENCOUNTER 2023-07-29 08:00 | Outpatient (NON) | payer OTHER, SELFPAY | END 2023-07-29 08:01 | disposition home or self-care (01) | LOC: ANHLAB 07-30 09:24 | PROVIDERS: PCP Internal Medicine Infectious Disease; Visit Provider Internal Medicine Gastroenterology | DX: Z12.11 Encounter for screening for malignant neoplasm of colon (principal) | CPT/HCPCS: 88305 ==

== ENCOUNTER → 2023-08-17 09:54 | Outpatient (CLI) | payer OTHER, SELFPAY ==
--- NOTE | ~2023-08-17 | MM_ITS ---
EXAMINATION: MM screening joseph BI w joel HISTORY: Screening mammogram TECHNIQUE: Craniocaudal and mediolateral oblique 3-D tomosynthesis images were obtained and synthetic 2-D images were generated. CAD analysis was submitted and interpreted. COMPARISON: 06/23/2022, 06/21/2021 BREAST PARENCHYMAL COMPOSITION: The breasts are heterogeneously dense, which may obscure small masses . FINDINGS: No suspicious mass, calcification, or architectural distortion are identified in either renetta ast to suggest malignancy. There has been no suspicious interval change. IMPRESSION: 1. No mammographic evidence of malignancy. 2. Recommend routine screening mammography in one year. BI-RADS Category 1: Negative Reviewed, dictated and finalized at location A.
== END ==
PROVIDERS: PCP Internal Medicine Infectious Disease; Visit Provider Nurse Practitioner
DX: Z12.31 Encounter for screening mammogram for malignant neoplasm of breast (principal)
CPT/HCPCS: 77063; 77067

== ENCOUNTER 2024-04-25 08:25 | Emergency (ER) | payer OTHER, SELFPAY ==
[2024-04-25 08:33] VITALS: BP 117/58; PULSE 88; RESP 20; TEMP 36.4; O2SAT 100
--- NOTE | 2024-04-25 08:34 | ED.SKABFB ---
HPI - Skin/Abscess/Foreign Bdy General Chief complaint: Skin/Abscess/Foreign Body Stated complaint: Rash Time Seen by Provider: 04/25/24 08:34 Source: patient, RN notes reviewed and old records reviewed Mode of arrival: ambulatory Limitations: no limitations History of Present Illness HPI narrative: 48-year-old female to [facility] for complaint rash to bilateral arms, chest and anterior neck for 2 days. Patient endorses recently switching body wash and lotion. Patient denies exposure to any other known environmental irritant. Patient has been attempting to treat at home with cortisone cream with mild relief. Patient denies swelling to lips, mouth. Patient denies cough, difficulty breathing. Respirations even nonlabored. No acute distress. Patient able to tolerate fluids by mouth. Related Data Home Medications Medication Instructions Recorded Confirmed cetirizine 10 mg tablet 10 mg PO QAM 05/16/22 04/25/24 cholecalciferol (vitamin D3) 125 125 mcg PO DAILY 05/16/22 04/25/24 mcg (5,000 unit) tablet (Vitamin D3) montelukast 10 mg tablet 10 mg PO QAM 05/16/22 04/25/24 multivitamin 1 tablet PO DAILY 05/16/22 04/25/24 L.acidop,casei,lactis,rham-B.lact,john 1 cap PO DAILY 12/31/22 04/25/24 625 mg (10 billion cell) capsule (Advanced Probiotic) oxybutynin chloride 10 mg 10 mg PO DAILY 04/25/24 04/25/24 tablet,extended release 24 hr Allergies Allergy/AdvReac Type Severity Reaction Status Date / Time amoxicillin Allergy Severe Rash Verified 04/25/24 08:56 clavulanic acid Allergy Severe Rash Verified 04/25/24 08:56 [From Augmentin] promethazine AdvReac Mild Nausea and Verified 04/25/24 08:56 Vomiting Review of Systems Review of Systems: All systems reviewed & are unremarkable except as noted in HPI and below Constitutional: Constitutional: Reports no additional constitutional complaints Eyes: Eyes: Reports no additional eye complaints ENT: Reports system reviewed and no additional complaints, except as documented Cardiovascular: Cardiovascular: Reports no additional cardiovascular complaints, Denies chest pain and Denies dyspnea Respiratory: Respiratory: Reports no additional respiratory complaints, Denies cough and Denies dyspnea Musculoskeletal: Musculoskeletal: Reports no additional musculoskeletal complaints Integumentary/Breasts: Skin/Breast: Reports rash ( Bilateral lower arms, upper chest, anterior neck, right eyelid) Neurologic: Reports system reviewed and no additional complaints, except as documented Psychiatric: Psychiatric: Reports no additional psychiatric complaints PMFSH Past Medical History Medical History (Updated 04/25/24 @ 09:14 by Yoli Traore APRN) Colon cancer screening History of cervical dysplasia Status post cryotherapy in [id number] (normal spontaneous vaginal delivery) X3 Surgical History Surgical History (Updated 07/29/23 @ 07:47 by Clarke Pemberton MD) H/O: hysterectomy History of History of hysteroscopy 05/09 Family History Family History Father Diabetes mellitus Hypertension Mother Small bowel carcinoma Valero syndrome Sibling Valero syndrome Social History Social History Smoking status: Never smoker Alcohol intake: never Substance use: never Substance use type: does not use Living arrangements: with family Spiritual care concerns: No Comments At the time of my signature, I reviewed and agree with the nursing past medical, surgical, social, and family history. There is no relevant family history pertinent to the patient complaint. Exam Const: General: cooperative, healthy appearing, comfortable, no acute distress, alert and well nourished Nutritional Appearance: well nourished Orientation/consciousness: patient oriented x3 Limitations: no limitations HENMT: Head: normal to in
== END 2024-04-25 09:17 | disposition home or self-care (01) ==
PROVIDERS: Emergency Provider Nurse Practitioner Family; PCP Internal Medicine Infectious Disease
DX: L25.9 Unspecified contact dermatitis, unspecified cause (principal)
CPT/HCPCS: 99213; G0463

== ENCOUNTER 2024-11-04 09:44 | Outpatient (CLI) | payer OTHER, SELFPAY ==
--- NOTE | ~2024-11-04 | MM_ITS ---
EXAMINATION: MM screening joseph BI w joel HISTORY: Screening TECHNIQUE: Craniocaudal and mediolateral oblique 3-D tomosynthesis images were obtained and synthetic 2-D images were generated. CAD analysis was submitted and interpreted. COMPARISON: Comparison to multiple prior studies sequentially, with oldest reviewed study dated 06/15. BREAST PARENCHYMAL COMPOSITION: Dense: The breasts are heterogeneously dense, which may obscure small masses FINDINGS: There is no evidence of suspicious mass, calcification, or architectural distortion to sugg est malignancy in either breast. There has been no suspicious interval change. IMPRESSION: 1. No mammographic evidence of malignancy. 2. Recommend routine screening mammography in one year. BI-RADS Category 1: Negative Reviewed, dictated and finalized at location B. ESCORT
== END 2024-11-04 09:45 | disposition home or self-care (01) ==
LOC: ANHIMG 09:46
PROVIDERS: PCP Internal Medicine Infectious Disease; Visit Provider Obstetrics & Gynecology Gynecology
DX: Z12.31 Encounter for screening mammogram for malignant neoplasm of breast (principal)
CPT/HCPCS: 77063; 77067

== ENCOUNTER 2024-11-26 08:10 | Outpatient (CLI) | payer OTHER, SELFPAY ==
--- NOTE | ~2024-11-26 | MM_ITS ---
EXAMINATION: MM diagnostic joseph BI w joel HISTORY: Breast pain. TECHNIQUE: Additional 3-D tomosynthesis images of the breasts were performed and synthetic 2-D images were generated. CAD analysis was submitted and interpreted. COMPARISON: Comparison to multiple prior studies sequentially, with oldest reviewed study dated 06/15. BREAST PARENCHYMAL COMPOSITION: Not dense: There are scattered areas of fibroglandular density. FINDINGS: The breasts are stable. No new masses, calcifications or architectural distortion in either breast to suggest malignancy. IMPRESSION: 1. No evidence for malignancy in either breast. 2. Routine yearly screening mammogram and regular clinical breast examination are recommended. BI-RADS Category 1: Negative Reviewed, dictated and finalized at location B. K SUPERVISOR IMPRESSION: 1. No evidence for malignancy in either breast. 2. Routine yearly screening mammogram and regular clinical breast examination a re recommended. BI-RADS Category 1: Negative
== END 2024-11-26 08:11 | disposition home or self-care (01) ==
LOC: MICIMG 08:11
PROVIDERS: PCP Internal Medicine Infectious Disease; Visit Provider Nurse Practitioner Women's Health
DX: N64.4 Mastodynia (principal); N63.10 Unspecified lump in the right breast, unspecified quadrant; N63.20 Unspecified lump in the left breast, unspecified quadrant
CPT/HCPCS: 77062; 77066; G0279

== ENCOUNTER 2025-07-28 13:24 | Outpatient (CLI) | payer OTHER, SELFPAY ==
--- NOTE | ~2025-07-28 | US_ITS ---
EXAMINATION: US breast BI limited HISTORY: 50-year-old female with palpable lump superior to the nipple bilaterally. Diagnostic mammogram obtained for these complaining in November showed no mammographic evidence of malignancy. COMPARISON: Mammogram 11/26/2024 through 06/23/2022 FINDINGS: Targeted ultrasound at the area of the patient's palpable lump superior to the nipples bilaterally was completed. Normal fibroglandular tissue is identified bilaterally. No suspicious solid or cystic masses seen. IMPRESSION: No sonographic evidence of malignancy in either breast. RECOMMENDATIONS: Recommend continued screening mammography. Clinical management of patient's palpable lump. BI-RADS 1, NEGATIVE Reviewed, dictated and finalized at location B.
--- OUTSIDE RECORDS SUMMARY | 2025-07-28 14:05 | XMS_ITS | Encounter Summary ---
Author Organization [facility] Address [address] [place] [address] Phone Care Team Providers Care Hotel Maintenance Worker Name Role Phone Rey Escobar MD Primary Care Provider [phone] Latonia Guerrero MD Unavailable Eliceo Pena DMD Unavailable Yahaira Painter NP Unavailable Nishant Bradshaw MD Unavailable [phone] Bryce Grant MD Unavailable [phone] Miguel Puente MD Unavailable + Monique Masters OD Unavailable [phone] Encounter Details Date Type Department Care Team (Late st Contact Info) Description 04/04/2023 Orders Only [facility] [address] [place] [address] Rey Escobar MD [address] [address] Social History Tobacco Use Types Packs/Day Years Used Date Smoking Tobacco: Never Alcohol Use Standard Drinks/Week Comments No 0 (1 standard drink = 0.6 oz pur e alcohol) PHQ-2 Answer Date Recorded PHQ-2 Total Score (If total score is 3 or more points, staff should administer the PHQ-9) 0 08/23/2022 Comments No Sex and Gender Information Value Date Recorded Sex Assigned at Not on file 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 Gender Identity Not on file Sexual Orientation Not on file documented as of this encounter Plan of Treatment Not on file documented as of this encounter Procedures Procedure Name Priority Date/Time Associated Diagnosis Comments SCAN - LABS 04/04/2023 documented in this encounter Results * SCAN - LABS (04/04/2023) Rey Escobar MD Final Result documented in this encounter Visit Diagnoses Not on filedocumented in this encounter Care Teams Hotel Maintenance Worker Relationship Specialty Start Date End Date Rey Escobar MD [address] [place] [address] PCP - General 03/04/15 Latonia Guerrero MD [address] [place] [address] [id number] Consulting Physician Gynecology 09/30/17 Eliceo Pena DMD [address] [place] [address] Consulting Physician Dental Hand Shoe Cutter 08/26/20 Yahaira Painter NP [address] [place] [address] Nurse Practitioner Gynecology 04/21/22 Nishant Bradshaw MD [address] [place] [address] Consulting Physician Urology 08/23/22 [place] [address] [place] [address] Consulting Physician Urology 10/29/22 Miguel uPente MD [address] [place] [address] Referring Physician Gastroenterology 07/29/23 Monique Masters, ZOE [address] [place] [address] Consulting Physician Optometry 04/26/25 documented as of this encounter
--- OUTSIDE RECORDS SUMMARY | 2025-07-28 14:05 | XMS_ITS | Encounter Summary ---
Author Organization [facility] Healthcare Address [address] [place] [address] Care Team Providers Care Beater Tender Name Role Phone Rey Escobar MD Primary Care Provider [phone] Latonia Guerrero MD Unavailable [phone] Eliceo Pena DMD Unavailable Yahaira Painter NP Unavailable [phone] Nishant Bradshaw MD Unavailable [phone] Bryce Grant MD Unavailable [phone] Miguel Puente MD Unavailable + Monique Masters OD Unavailable [phone] Encounter Details Date Type Department Care Team (Late st Contact Info) Description 08/26/2020 Telephone [facility] [address] [place] [address] Jamil Hernandez, RT Social History Tobacco Use Types Packs/Day Years Used Date Smoking Tobacco: Never Alcohol Use Standard Drinks/Week Comments No 0 (1 standard drink = 0.6 oz pur e alcohol) PHQ-2 Answer Date Recorded PHQ-2 Total Score (If total score is 3 or more points, staff should administer the PHQ-9) 0 04/15/2020 Comments Yes Sex and Gender Information Value Date Recorded Sex Assigned at Not on file 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 Gender Identity Not on file Sexual Orientation Not on file documented as of this encounter Plan of Treatment Not on file documented as of this encounter Visit Diagnoses Not on filedocumented in this encounter Additional Health Concerns Infection Onset Date Last Indicated Resolved Time COVID: Suspected 05/20/2021 05/20/2021 05/20/2021 10:01 AM CDT documented as of this encounter Care Teams Beater Tender Relationship Specialty Start Date End Date Rey Escobar MD [address] [place] [address] PCP - General 03/04/15 Latonia Guerrero MD [address] [place], [place] [phone] Consulting Physician Gynecology 09/30/17 Eliceo Pena DMD [address] [place], [place] [phone] Consulting Physician Dental Provider Network Analyst 08/26/20 Yahaira Painter BILLET CHECKER [address] [place] [address] Nurse Practitioner Gynecology 04/21/22 Nishant Bradshaw MD [address] [place] [address] Consulting Physician Urology 08/23/22 [place] [address] [place] [address] Consulting Physician Urology 10/29/22 Miguel Puente MD [address] [place] [address] Referring Physician Gastroenterology 07/29/23 Monique Masters, ZOE [address] [place] [address] Consulting Physician Optometry 04/26/25 documented as of this encounter
--- OUTSIDE RECORDS SUMMARY | 2025-07-28 14:05 | XMS_ITS | Clinical Summary ---
Author Organization [facility] Address [address] [address] Phone Care Team Providers Care Manager Sourcing Name Role Phone Rey Escobar MD Primary Care Provider [phone] Social History Tobacco Use Types Packs/Day Years Used Date Smoking Tobacco: Never Assessed Comments Unknown Sex and Gender Information Value Date Recorded Sex Assigned at Not on file Legal Sex Female 12:04 AM CDT Gender Identity Not on file Sexual Orientation Not on file Plan of Treatment Health Maintenance Due Date Last Done Comments Hepatitis C Virus (HCV) Screening 1973 Hepatitis B Immunization (1 of 3 - 19+ 3-dose series) 1992 HPV/Cotest 2003 Cologuard 2018 Colonoscopy 2018 Colorectal Cancer Screening 2018 Immunochemical Fecal Occult Blood 2018 Cervical Cancer Screening (CCS) 09/18/2020 Pap Smear 09/18/2020 09/18/2017 Pneumococcal Immunization (5 0+ years) (1 of 1 - PCV) 2023 Zoster Immunization (1 of 2) 2023 Influenza Immunization (#1) 2025 08/26/2020 SARS-COV-2 Immunization (3 - 2024- season) 2025 05/11/2021, 04/20/2021 Respiratory Syncytial Virus (RSV) Immunization (Adult) (1 - 1-dose 75+ series) 2048 DTaP/Tdap/Td Immunization Discontinued 06/17/2018 TdaP Immunization Completed 06/17/2018 Human Papillomavirus (HPV) Immunization Aged Out No longer eligible based on patient's age to complete this topic Meningococcal Immunization (ACWY) Aged Out No longer eligible based on patient's age to complete this topic Rotavirus Immunization Aged Out No lo nger eligible based on patient's age to complete this topic Care Teams Manager Sourcing Relationship Specialty Start Date End Date Rey Escobar MD [address] [employer] [employer] [address], [address] [place] [address] PCP - General Infectious Disease 01/02/22
--- OUTSIDE RECORDS SUMMARY | 2025-07-28 14:05 | XMS_ITS | Clinical Summary ---
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 Gender Identity Not on file Sexual Orientation Not on file Plan of Treatment Health Maintenance Due Date Last Done Comments DTAP/TDAP/TD VACCINES (1 - Tdap) 1992 HEPATITIS B VACCINES (1 of 3 - 19+ 3-dose series) 01/1992 HPV/Cotest (21-29) 1994 CERVICAL CANCER SCREENING 2003 HPV/Cotest (30-65) 2003 PAP SMEAR 2003 BREAST CANCER SCREENING 2013 COLORECTAL SCREENING 2018 Colorectal Cancer Screening 2018 FIT-DNA Q 3 years 2018 FIT/FOBT Q 1 year 2018 Flex Sig/CT Colonography Q 5 years 2018 ZOSTER VACCINE (1 of 2) 2023 INFLUENZA VACCINE (#1) 2025 Insurance [facility] [employer] PPO [id number]
--- OUTSIDE RECORDS SUMMARY | 2025-07-28 14:05 | XMS_ITS | Clinical Summary ---
Author Organization [facility] [address] [place] [address] Phone Care Team Providers Care Media Relations Manager Name Role Phone Rey Escobar MD Primary Care Provider [phone] Latonia Guerrero MD Unavailable [phone] Eliceo Pena DMD Unavailable Yahaira Painter NP Unavailable [phone] Nishant Bradshaw MD Unavailable [phone] Bryce Grant MD Unavailable [phone] Miguel Puente MD Unavailable + Monique Masters OD Unavailable [phone] Allergies Active Allergy Reactions Criticality Noted Date Comments Amoxicillin Hives Medium Reaction: HIVES, Potassium Hives Medium Reaction: HIVES, Promethazine Medications UNABLE TO FIND Take 2 each by mouth daily Med Name: ashwagonda 5 Active montelukast (SINGULAIR) 10 mg tabletIndicatio ns:Seasonal Allergic Rhinitis Take 1 tablet (10 mg total) by mouth daily 90 tablet 3 5 Active UNABLE TO FIND Med Name: Vitamin D+K, details lacking. She will send info on My Chart. 5 Active cetirizine (ZyrTEC) 10 mg tabletIndicatio ns:Allergic Rhinitis Take 1 tablet (10 mg total) by mouth daily 90 tablet 1 Active Active Problems Problem Noted Date Diagnosed Date Chalazion of right lower eyelid 04/01/2025 Overview (04/21/2025): Treated by reach lift truck driver. Assessment & Plan (04/21/2025 10:28 AM CDT): See HPI. Acute non-recurrent maxillary sinusitis 02/26/20 Assessment & Plan (04/21/2025 10:17 AM CDT): Acute problem about six weeks ago, therapy completed. She feels improved. She thinks the recurrence was due to going off Singulair as a trial to see if her mood improved. She had a difficult time with doxycycline due to GI upset but seems to be over all of the acute symptoms. Follow-up early as needed. Adjustment disorder with depressed mood 11/18/19 Assessment & Plan (04/21/2025 10:18 AM CDT): Acute problem as of about five months ago, she reports feeling much better overall since her home situation has improved with not working quite as much. Continue supportive care. Assessment & Plan (02/14/2025 3:06 PM CDT): New problem, started several months ago, slightly improved as she has worked through some of her issues by talking to friends and starting [employer]. Recommend she consider counseling and/or medications if gradual improvement does not continue. Follow-up in 1-2 months. Morning headache 08/28/2023 Assessment & Plan (09/28/2023 2:30 PM BEFORE SCHOOL BABYSITTER): She notes a headache when she first gets up in the morning for the past two weeks. She wonders if it is due to her allergies. She also has some tension in the posterior neck and upper back muscles. The headache subsides when she gets up and starts her day. Neurological exam is nonfocal. We discussed possible causes including muscle tension, undiagnosed sleep apnea, and allergies. She does snore at times but not every night, and has some mild postprandial sleepiness after lunch which has improved since she modified her diet to lose weight. Other causes of headache are possible. She will try using her Flonase regularly for a couple of weeks and report if symptoms are not improving. Borderline diabetes 04/04/2023 Overview (05/19/2025): HbA1c 5.7% at her formerly [facility] annual with Dr. Guerrero. Eye exam by Dr. Masters on 04/26/2025: Assessment & Plan (04/14/2025 2:51 PM CDT): Chronic, noted about two years ago. We ordered a follow-up to be done before her next annual. She did not want labs ordered at this time. Assessment & Plan (02/14/2025 3:08 PM CDT): Chronic, present for 1-2 years or more, she had labs [place]. Apparently blood sugar or HGB A1c was elevated. We will request those results for review and see the patient back in 1-2 months for her annual. Assessment & Plan (09/11/2023 2:19 PM CDT): HbA1c is mildly elevated. We encouraged attention to her diet and a little bit of weight loss. We also discussed medications available to improve glycemic control and to assist with weight loss (GLP-1 agonists), but she wants to work on her diet. Assessment & Plan (05/02/2023 1:28 PM CDT): Her HbA1c was minimally elevated at her formerly [facility] annual with Dr. Guerrero. She put herself on a diet and has already lost about 12 lb. We discussed diet in relation to diabetes and made some additional recommendations. We will follow-up with labs at her annual in August. Onychomycosis 08/18/2022 Overview (09/11/2023): Right third toenail. Assessment & Plan (09/28/2023 2:32 PM BEFORE SCHOOL BABYSITTER): She forgot to mention her right third toenail problem at her last annual visit. It is thick and sometimes a little tender. More recently (about two months ago) she noted a dark transverse pigmentation at the base of the toenail. Exam is consistent with onychomycosis. The transverse dark purple or almost black pigmentation could be due to the fungus infection, hematoma, or less likely a nevus/melanoma. We discussed all of this today. I suggested a referral to podiatry, but she declines due to insurance problems (her was terminated from his job with a good [employer] package, but needs to find new work with insurance). I suggested self treatment at home with a nail file or Dremel tool followed by nail lacquer application. She may try just the lacquer. Once insurance is reestablished, she is open to seeing counterperson. Prolapse of female pelvic organs 05/18/2021 Assessment & Plan (09/09/2022 2:10 PM CDT): She has had problems with pelvic organ prolapse, and her telegraph office manager recently recommended surgical correction. The rectal prolapse does not really bother her that much. It is not painful. There is no blood in the stool. The cystocele and uterine prolapse are associated with stress incontinence. She denies dysuria or hematuria. She is getting fitted for a pessary soon. She would like a second opinion about the surgery, so we recommended urogynecology at [facility]. Stress incontinence 05/18/2020 Assessment & Plan (06/22/2021 2:43 PM CDT): She has been experiencing some stress incontinence, typically when she exercises and when she coughs or sneezes. There is no dysuria or hematuria. She has tried Kegel's exercises without much success, but it sounds like a brief trial. She also discussed the problem with her telegraph office manager, Dr. Guerrero, who talked about possible surgery or a pessary. She does not want to consider either of those. We gave her printouts on Kegel's exercises. She should try to stick with them for six months. If still not improving, we can refer her to a urologist. Dermatofibroma 04/15/2020 Overview (04/15/2020): Left triceps and left lateral foot, irritating her, but wants to delay referral for now. Assessment & Plan (04/15/2020 2:01 PM CDT): She has a couple of dermal papules that have been bothering her. These look like dermatofibromas. One is approximately 0.7 cm in diameter and overlies the left lower lateral triceps area. The other is around 0.5 cm in diameter and overlies the left lateral dorsal mid-foot. These get irritated from her clothing and footwear. They are otherwise unchanged recently in size or character. Examination suggests that these are benign lesions, but probably should be removed because of their location and symptoms. However, she wants to think about it before deciding on surgical excision. Xanthelasma of eyelid, bilateral 10/27/2018 Assessment & Plan (12/09/2018 11:19 AM BEFORE SCHOOL BABYSITTER): She saw her eye doctor recently noted some possible xanthelasmas around her eyes. Her last cholesterol profile was six or seven years ago. We will check a follow-up and proceed from there. 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 This was noted on her last annual in June of last year, and has been noted by her umbrella repairer doctors in the past. She has no symptoms of cardiovascular disease. She has had no previous workup except for possibly a EKG at [facility] more than 10 years ago, details unfortunately not available at this time. However, with a history of these s kipped beats over such a long period of time, it is unlikely that there is significant cardiovascular disease in this otherwise asymptomatic patient. We will continue to monitor clinically without further investigation for the time being. Atopic rhinitis 01/10/2015 Overview (02/23/2017): Allergic rhinitis Assessment & Plan (04/21/2025 10:23 AM CDT): Chronic, present for many years, she was tested for allergens about 10 years ago with mostly negative results (borderline positive maple box elder). She got a cat recently, has never had house cats before. It does not seem to be a problem. Symptoms generally have improved since going back on Singulair/montelukast which we stopped briefly when she was having mood problems. She also takes cetirizine 10 mg daily. We discussed possible referral to an long term care pharmacist if she has recurrent symptoms. Assessment & Plan (02/14/2025 3:08 PM CDT): Chronic, present for more than 10 years, she took a 10 day drug holiday from montelukast 10 mg daily to see if it would help her mood, and there was improvement in her mood but she is not sure it correlates, as she was also able to work through some of her feelings with the help of brodie. Since stopping the montelukast, her allergies have gotten worse, so we recommend resuming montelukast for now and continuing cetirizine 10 mg tablets daily. She reports no longer using fluticasone nasal spray. Assessment & Plan (09/11/2023 2:18 PM CDT): She is bothered mostly in the spring and fall. She uses Flonase as needed. For daily use, she relies on Zyrtec and Singulair. Continue same. Assessment & Plan (08/23/2022 2:07 PM CDT): Symptoms are pretty well controlled on current therapy including Singulair, Zyrtec, and Flonase as needed. She also has Astelin on her list. Continue same. Assessment & Plan (06/22/2021 2:44 PM CDT): She suffers from significant allergy problems. She has never seen an long term care pharmacist, but did see an ENT specialist a few years ago and was started on Singulair and Dina. She had a probable bacterial sinusitis recently and responded to antibiotics. Someone told her that the Dina may no longer be working and to try Claritin instead. I am not sure of the basis for this recommendation, but we sent in a prescription for the latter. We will also add Astelin nasal spray. She can use the Flonase as needed. Continue Singulair. Consider referral to long term care pharmacist if still symptomatic. Assessment & Plan (04/23/2020 1:19 PM CDT): Symptoms are well controlled with and oral antihistamine and Singulair. If she misses a day or two, she can really tell the difference. Since being on this combination, her previously frequent sinus infections have essentially ceased. We discussed the recent FDA warning about Singular causing severe mood problems. However, she has taken it for years, and denies having any mood issues. She will read up about the morning, and let me know her decision about continuing or changing to alternative therapy such as Astelin or Flonase. Assessment & Plan (12/09/2018 11:17 AM BEFORE SCHOOL BABYSITTER): She needed a refill on singular which we sent in. Symptoms seem to be reasonably well controlled on this medication and generic Zyrtec. Continue same. Assessment & Plan (09/30/2017 1:59 PM BEFORE SCHOOL BABYSITTER): She continues to have flares from time to time, but as long as she uses her allergy medications, things are under much better control. She will continue the same. Class 1 obesity due to exces s calories without serious comorbidity with body mass index (BMI) of 34.0 to 34.9 in adult 01/28/2011 Overview (04/14/2025): BMI fluctuates Assessment & Plan (04/21/2025 10:20 AM CDT): Chronic, present for about 15 years, recommend attention to diet and sustained weight loss. She struggles with her weight. She tends to eat even when she is not hungry. She did well on weight watchers when there was a weigh in and accountability. We discussed medical aids to weight loss. She decided not to start medication after shared decision-making. She will continue her personal efforts. I recommended portion control, possibly intermittent fasting. Assessment & Plan (09/11/2023 2:19 PM CDT): Her weight is down about 20 lb since she started working on this seriously about six months ago. She will continue her efforts. Assessment & Plan (05/02/2023 1:29 PM CDT): She is working on weight loss and has already had some success. Assessment & Plan (08/23/2022 2:07 PM CDT): She stays pretty active. We encouraged attention to her diet. Assessment & Plan (06/22/2021 2:41 PM CDT): She has trouble controlling her weight. She would like to see a retail loss prevention officer. She thinks she might need a referral, and I asked her to check with her insurance. We would be happy to provide one. Assessment & Plan (04/15/2020 2:02 PM CDT): Her weight is down a few lb. She will continue to work on appropriate diet and some weight reduction. Assessment & Plan (12/09/2018 11:18 AM BEFORE SCHOOL BABYSITTER): Weight is basically unchanged. She had a baby last summer, and she had gestational diabetes which led to better eating habits.. Continue efforts. Assessment & Plan (10/11/2017 3:18 PM BEFORE SCHOOL BABYSITTER): We spent a fair amount of time discussing this today. She has had good luck with weight watchers before kids, but since she has had her family, she has been very busy and tends to grab things to eat when she can. She does not eat emotionally. We went over her diet, basal energy expenditure, negative energy balance, appropriate balance of nutrients. Basically, if she eats no more than 1800 kilocalories a day, she should be in negative energy balance and should lose weight. Of the 1800, no more than about 1/3 should be carbohydrates, and she should avoid carbohydrates with a high glycemic index such as sugars, white flour, rice, potatoes, etc. Increased activity level would be helpful as well. A formal weight loss program such as weight watchers or Dr. Joy's program would be helpful, but she does not have time for that right now. We will see her back in one year. Recurrent sinusitis 11/18/2009 Overview (04/15/2020): Recurrent sinusitis, significantly improved with oral antihistamine and Singulair. Assessment & Plan (10/10/2018 1:46 PM BEFORE SCHOOL BABYSITTER): Complete antibiotics and other meds as prescribed Take OTC decongestants for congestion- Sudafed/Mucinex Motrin/Tylenol for pain/fever If you have high blood pressure or any kidney disease use Tylenol only. Take an Antihistamines like Zyrtec or Claritin or Dina daily at bedtime for the next 2-3 weeks. Can take Benadryl at bedtime for the next 3-4 days for immediate relief of runny nose and may help with sinus headache. Try saline nasal spray irrigations 2-4 times a day or try using Lissy pot as directed daily then use your Flonase or other corticosteroid nasal spray every day to decrease the swelling and inflammation in your nasal cavities. Drink plenty of water & get plenty of rest A humidifier may also help with congestion Follow up with your PCP in 3-5 days if you are not getting better Resolved Problems Problem Noted Date Diagnosed Date Resolved Date Acute bacterial rhinosinusitis 05/30/2021 06/24/2022 Overview (06/24/2022): One of several episodes, saw TABATHA Cabral. Assessment & Plan (06/22/2021 2:45 PM CDT): She was seen by TABATHA Cabral recently for a three week upper respiratory/sinus infection. She responded to antibiotics prescribed. She still has allergic symptoms as described elsewhere. We modified her regimen. Assessment & Plan (05/30/2021 11:22 AM CDT): Patient has known history of recurrent sinusitis. She has had symptoms of congestion, sinus pressure, sore throat and cough x 3 weeks. She know is experiencing pain in her teeth. She has been to urgent care x 2 times and treated for URI. Symptoms now however, are consistent with acute sinusitis. We will begin antibiotic therapy, which patient will complete as prescribed. She will continue with sinus care as outlined in AVS. Patient instructed to call should symptoms worsen or persist. Acute right-sided low back p ain without sciatica 09/19/2020 06/21/2021 Overview (06/21/2021): See office note, TABATHA Cabral. Assessment & Plan (09/19/2020 3:54 PM BEFORE SCHOOL BABYSITTER): Patient has had acute rt sided low back pain x 2 weeks. Pain is worse with movement and prolonged sitting. She has seen the chiropractor for 4 visits with minimal change in symptoms. She denies any associated reports of sciatica or loss of bowel or bladder control. Reflexes are intact. ROM however limited with flexion of lumbar spine and straight leg raises. Given persistent symptoms will do imaging of lumbar spine to r/o acute process. If no acute fracture noted will refer for physical therapy in addition to childcare provider. She will also be give a short course of steroids and muscle relaxer. She was encouraged to use tylenol or motrin for pain. She can also use ice/heat. She will return in 4 weeks for follow up with Dr. Escobar or sooner if needed. Periumbilical abdominal pain 08/22/2020 06/21/2021 Overview (06/21/2021): CBC, CMP, and CT abdomen negative for acute pathology. Assessment & Plan (08/26/2020 3:41 PM CDT): For the past four or five days, she has had a a sharp stabbing pain in the right periumbilical area if she moves a certain way, especially bending over or picking up her son who is 30 lbs. She thought it might have something to do with her exercise routine. She has been going to the gym for circuit training since June. She has had no recent fever or chills. No trouble with her bowels. No urinary complaints. Exam demonstrates some moderate tenderness between the umbilicus in the right upper quadrant, as well as in the right lower quadrant. There is a small easily reducible umbilical hernia. There is no ventral hernia. There is no rigidity or rebound tenderness. There is no mass, although the aorta is palpable, but not felt to be enlarged. Request a CBC and CMP, as well as a CT abdomen pelvis with oral and IV contrast. We will be in touch with the patient about the results. Strep pharyngitis 10/10/2018 12/09/2018 Assessment & Plan (10/10/2018 1:45 PM BEFORE SCHOOL BABYSITTER): Complete antibiotic as prescribed Tylenol or Motrin for fever/pain Gargle with warm salt water (1tsp salt/1 cup water) Suck on ice chips, popsicles, cough drops, or throat lozenges You may return to work, daycare, or school 24 hours after starting antibiotics and you are fever free Do not share food, drinks, or utensils Replace your toothbrush within 24 hours after starting antibiotics and again after 4-5 days. I recommend washing your pillow cases and sheets after 24 hours Follow up with your PCP if you are not getting better Overweight 03/31/2014 09/30/2017 Overview (02/22/2017): Overweight Encounters Date Type Department Care Team Description 04/27/2025 Telephone [facility] [address] [place] [id number] Rey Escobar MD from Last 3 Months Immunizations Immunization Administration Dates Next Due Influenza, Quadrivalent, Spl it, Preservative Free, Intramuscular 08/26/2020 Influenza, Unspecified 02/11/2025(Deferred: Jossie ent Refused) Pfizer SARS-CoV-2 Monovalent Vaccination (12+ Yrs) PURPLE 05/11/2021,04/20/2021 Tdap 06/17/2018 Surgical History Surgery Date Site/Laterality Comments SECTION 07/11/2018 Dr. Guerrero, [facility]. 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 CERVIX LESION DESTRUCTION 11/18/1994 - 11/17/1995 SKIN SURGERY 12/23/2020 Right Right thumb laceration repaired. MAMMOGRAPHY 06/21/2021 Bilateral Negative, [facility]. PAP SMEAR WITH HPV 02/06/2021 Negative, Dr. Guerrero. DILATION AND CURETTAGE OF UTERUS 05/28/2022 N/A Negative for dysplasia or malignancy, [facility], Dr. Guerrero. MAMMOGRAPHY 06/23/2022 Bilateral Negative, [facility]. COLONOSCOPY 07/29/2023 N/A Small 6 mm tubular adenoma removed, Dr. Lino, [facility]. MAMMOGRAPHY 08/17/2023 Bilateral Negative, [facility]. MAMMOGRAPHY 11/04/2024 Bilateral Negative, [facility]. MAMMOGRAPHY 11/26/2024 Bilateral Negative, [facility]. Medical History Medical History Date Comments Adiposity 2010 Obesity Overweight 03/31/2014 Overweight 06/2018 [facility] Strep pharyngitis 10/10/2018 Non morbid obesity 01/28/2011 Obesity (BMI 30.0-34.9) Periumbilical abdominal pain 08/22/2020 CBC , CMP, and CT abdomen negative for acute pathology. Acute right-sided low back p ain without sciatica 09/19/2020 See office note, Gen Cabral NP. Acute bacterial rhinosinusitis 05/30/2021 O ne of several episodes, saw TABATHA Cabral. Covid-19 05/20/2022 Fever for 2-3 da ys, then like a bad cold. Gestational diabetes 2017 Chicken pox Obesity (BMI 30.0-34.9) 01/28/2011 Obesity (BMI 30.0-34.9) Family History Medical History Relation Name Comments Other Brother Valero syndrom e Diabetes Father Diabetes mellit us; Hypertension Father Hypertension; Obesity Father Obesity; Cancer Mother Cancer, unknown ; Valero syndrome Mother Pancreatic cancer Mother Cancer, pa ncreas; Cause of : Cancer, pancreas Relation Name Status Comments Brother Father Mother Social History Tobacco Use Types Packs/Day Years Used Date Smoking Tobacco: Never Passive Smoke Exposure: Never Smokeless Tobacco: Never Tobacco Cessation:Counseling Given: Not Answered Alcohol Use Standard Drinks/Week Comments No 0 (1 standard drink = 0.6 oz pur e alcohol) PHQ-2 Answer Date Recorded PHQ-2 Total Score (If total score is 3 or more points, staff should administer the PHQ-9) 0 04/14/2025 PHQ-9 Answer Date Recorded PHQ-9 Total Score 12 02/11/2025 Comments No Sex and Gender Information Value Date Recorded Sex Assigned at Not on file Legal Sex Female 9:32 AM BEFORE SCHOOL BABYSITTER Gender Identity Not on file Sexual Orientation Not on file Obstetrics History Para Term AB IAB SAB Ectopic Multiple Livin g Live Births 1 Date Outcome GA Total Labor Labor/2nd/3rd Weight Sex Type Anes PTL Geovanna A1 A5 Name Clin Last Filed Vital Signs Vital Sign Reading Time Taken Comments Blood Pressure 102/68 04/14/2025 2:02 PM CDT Pulse 79 04/14/2025 2:02 PM CDT Temperature 37.4 C (99.3 F) 04/14/2025 2:02 PM CDT Respiratory Rate 16 04/14/2025 2:02 PM CDT Oxygen Saturation 99% 04/14/2025 2:02 PM CDT Inhaled Oxygen Concentration - - Weight 96.8 kg (213 lb 6.4 oz) 04/14/2025 2:02 P M CDT Height 167.6 cm (5' 5.98) 04/14/2025 2:02 PM CD T Body Mass Index 34.46 04/14/2025 2:02 PM CDT Plan of Treatment Health Maintenance Due Date Last Done Comments Hepatitis C Screening 1973 Hepatitis B Screening 1991 Cervical Cancer Screening 02/06/2022 02/06/2021 Zoster Vaccine (1 of 2) 2023 Covid-19 Vaccine (2024- season) 2025 05/11/2021, 04/20/2021 Influenza Vaccine (#1) 2025 08/26/2020 Breast Cancer Screening-Mammogram 11/04/2025 11/04/2024, 08/17/2023, 06/23/2022, Additional history exists Depression Screening 04/14/2026 04/14/2025, 02/25/2025, 02/11/2025, Additional history exists Regular Well Visit/Exam 18-64 04/14/2026 04/14/2025, 09/11/2023, 08/23/2022, Additional history exists DTaP/Tdap/Td Vaccine (2 - Td or Tdap) 06/17/2028 06/17/2018 Colon Cancer Screening-Colonoscopy 07/29/2028 07/29/2023 Pneumococcal vaccine <65 Aged Out No longer eligible based on patient's age to complete this topic Procedures Procedure Name Priority Date/Time Associated Diagnosis Comments HM MAMMOGRAPHY Routine 11/04/2024 COLONOSCOPY Routine 07/29/2023 PAP SMEAR WITH HPV Routine 02/06/2021 from Last 3 Months or Most Recently Relevant to Health Maintenance Results * MAMMOGRAPHY (11/04/2024) Mammography Normal Impressions Rey Escobar MD - 11/04/2024 Negative bilateral mammogram, 11/04/2024, [facility]. Narrative Rey Escobar MD - 11/04/2024 See scanned report. Rey Escobar MD HEALTH MAINTENANCE Final Resu lt * COLONOSCOPY (07/29/2023) Scribed Colonoscopy Abnormal Impressions Rey Escobar MD - 07/29/2023 Single 6 mm pedunculated polyp resected, pathology on request. Narrative Rey Escobar MD - 07/29/2023 See scanned report. Miguel Holloway MD HEALTH MAINTENANCE Final Result * PAP SMEAR WITH HPV (02/06/2021) Scribed Pap Smear w/HPV Normal Impressions Rey Escobar MD - 02/06/2021 Negative for intraepithelial malignancy. Narrative Rey Escobar MD - 02/06/2021 See scanned report from Dr. Guerrero. Pap on 02/03/2021, report on 02/06/2021. Mago Titus MD HEALTH MAINTENANCE Final Result from Last 3 Months or Most Recently Relevant to Health Maintenance Insurance [facility] CHOICE PLUS [facility] HMO/PPO Address: [address] [place] [address] [facility] CHOICE PLUS [facility] H[facility]/PPO Address: [place] [address] [facility] CHOICE PLUS [facility] HMO/PPO Address: [address] [address] [place] [address] [facility] CHOICE PLUS [facility] HMO/PPO Address: [address] [place] [address] [facility] CHOICE PLUS [facility] HMO/PPO Address: [place] [address] Care Teams Media Relations Manager Relationship Specialty Start Date End Date Rey Escobar MD [address] [place] [address] PCP - General 03/04/15 Latonia Guerrero MD [address] [place] [address] Consulting Physician Gynecology 09/30/17 Naveenbrendasurya Eliceo RojasCAITLIN [address] [place] [address] Consulting Physician Dental Biomedical Scientist 08/26/20 Yahaira Painter NP [address] [place] [address] Nurse Practitioner Gynecology 04/21/22 Nishant Bradshaw MD [address] [facility] [address] [place] [address] Consulting Physician Urology 08/23/22 [place] [address] [place] [address] Consulting Physician Urology 10/29/22 Miguel Puente MD [address] [place] [address] Referring Physician Gastroenterology 07/29/23 Monique Masters OD [address] [place], [place] [address] Consulting Physician Optometry 04/26/25
== END 2025-07-28 13:25 | disposition home or self-care (01) ==
LOC: ANHFOHIMG 13:25
PROVIDERS: PCP Internal Medicine Infectious Disease; Visit Provider Surgery
DX: N63.15 Unspecified lump in the right breast, overlapping quadrants (principal); N63.22 Unspecified lump in the left breast, upper inner quadrant
CPT/HCPCS: 76642

== ENCOUNTER 2025-11-08 14:25 | Outpatient (CLI) | payer OTHER, SELFPAY ==
--- NOTE | ~2025-11-08 | MM_ITS ---
EXAMINATION: MM screening joseph BI w joel HISTORY: Screening. TECHNIQUE: Craniocaudal and mediolateral oblique 3-D tomosynthesis images were obtained and synthetic 2-D images were generated. CAD analysis was submitted and interpreted. COMPARISON: 2024, 2023, and 2022. BREAST PARENCHYMAL COMPOSITION: Dense: The breasts are heterogeneously dense, which may obscure small masses. FINDINGS: No suspicious masses are seen. There are no suspicious calcifications. No unexplained architectural distortion is seen. There are no skin or nipple abnormalities identified. There is no adenopathy seen on the images submitted. IMPRESSION: No mammographic evidence to suggest malignancy is seen. The patient may return to screening mammography as per ACR guidelines. BI-RADS 1 - Negative. Reviewed, dictated and finalized at location A. INIAN FOLK ARTS INSTRUCTOR
--- OUTSIDE RECORDS SUMMARY | 2025-11-08 16:17 | XMS_ITS | Clinical Summary ---
Author Organization [facility] Address [address] [address] Phone Care Team Providers Care Lead Database Administrator Name Role Phone Rey Escobar MD Primary Care Provider [phone] Social History Tobacco Use Types Packs/Day Years [...] Immunization Completed 06/17/2018 Human Papillomavirus (HPV) Immunization (No Doses Required) Completed Meningococcal Immunization (ACWY) Aged Out No longer eligible based on patient's age to complete this topic Rotavirus Immunization Aged Out No lo nger eligible based on patient's age to complete this topic Care Teams Lead Database Administrator Relationship Specialty Start Date End Date Rey Escobar MD [facility] [employer], [address] [place] [address] PCP - General Infectious Disease 01/02/22
--- OUTSIDE RECORDS SUMMARY | 2025-11-08 16:17 | XMS_ITS | Clinical Summary ---
Author Organization [employer] [address] - [address]22 Address [address] [facility] 3rd [place] [address] Phone Care Team Providers Care Theoretical Physics Teacher Name Role Phone Unavailable Primary Care Provider Unavailabl e Social History Tobacco Use Types Packs/Day Years Used Date Smoking Tobacco: Never Assessed Comments Unknown Sex and Gender Information Value Date Recorded Sex Assigned at Not on file Legal Sex Female 3:32 PM SHOT CORE DRILL OPERATOR HELPER Gender Identity Not on file Sexual Orientation [...] 2) 2023 INFLUENZA VACCINE (#1) 2025 Insurance [facility] OPTIONS PPO [id number]
--- OUTSIDE RECORDS SUMMARY | 2025-11-08 16:17 | XMS_ITS | Clinical Summary ---
Author Organization [facility] [address] Address [address] [place] [address] Phone Care Team Providers Care Precinct Police Lieutenant Name Role Phone Rey Escobar MD Primary Care Provider [phone] Latonia Guerrero MD Unavailable [phone] Eliceo Pena DMD Unavailable Yahaira Painter NP Unavailable [phone] Nishant Bradshaw MD Unavailable [phone] Bryce Grant MD Unavailable [phone] Miguel Puente MD Unavailable + Monique Masters OD Unavailable [phone] Carolyn Da Silva MD Unavailable [phone] Allergies Active Allergy Reactions Criticality Noted Date [...] Active cetirizine (ZyrTEC) 10 mg tabletIndicatio ns:Allergic rhinitis due to other allergic trigger, unspecified seasonality Take 1 tablet by mouth once daily 90 tablet 5 Active NOT IN DATABASE, PRESCRIPTION,In dications:BMI 34.0-34.9,adult Drug name: plexus restore Dose: 1 serving Route: oral Frequency: daily Duration: 90 days 90 each 3 5 Active NOT IN DATABASE, PRESCRIPTION,In dications:BMI 34.0-34.9,adult Drug name: plexus blance Dose: 2 capsules Route: oral Frequency: daily Duration: 90 days 90 each 3 5 Active NOT IN DATABASE, PRESCRIPTION, Drug name: plexus slim Dose: 1 packet Route: oral Frequency: daily Duration: 90 days 90 each 3 5 Active NOT IN DATABASE, PRESCRIPTION,In dications:Weigh t Loss Management for Obese Patient (BMI >= 30) Drug name: plexus restore Dose: 1 serving Route: oral Frequency: daily Duration: 90 days 10/29/20 25 Discontin ued(Other ) Active Problems Problem Noted Date Diagnosed Date Chalazion of right lower eyelid 04/01/2025 Overview (04/21/2025): Treated by flash oven operator. Assessment & Plan (04/21/2025 10:28 AM CDT): [...] issues by talking to friends and starting ashLitespritedha. Recommend she consider counseling and/or medications if gradual improvement does not continue. Follow-up in 1-2 months. Morning headache 08/28/2023 Assessment & Plan (09/28/2023 2:30 PM VICE PRESIDENT MEDIA RELATIONS): She notes a headache when she first [...] 04/04/2023 Overview (05/19/2025): HbA1c 5.7% at her well-woman annual with Dr. Guerrero. Eye exam by [...] labs recently with a holistic provider in [place], Glenda Purcell. Apparently blood sugar or HGB A1c was [...] Her HbA1c was minimally elevated at her well-woman annual with Dr. Guerrero. She put herself on a diet and has already lost about 12 lb. We discussed diet in relation to diabetes and made some additional recommendations. We will follow-up with labs at her annual in August. Onychomycosis 08/18/2022 Overview (09/11/2023): Right third toenail. Assessment & Plan (09/28/2023 2:32 PM VICE PRESIDENT MEDIA RELATIONS): She forgot to mention her right third [...] terminated from his job with a good severence package, but needs to find new work with insurance). I suggested self treatment at home with a nail file or Dremel tool followed by nail lacquer application. She may try just the lacquer. Once insurance is reestablished, she is open to seeing riverboat captain. Prolapse of female pelvic organs 05/18/2021 Assessment & Plan (09/09/2022 2:10 PM CDT): She has had problems with pelvic organ prolapse, and her dairy truck driver recently recommended surgical correction. The rectal prolapse does not really bother her that much. It is not painful. There is no blood in the stool. The cystocele and uterine prolapse are associated with stress incontinence. She denies dysuria or hematuria. She is getting fitted for a pessary soon. She would like a second opinion about the surgery, so we recommended urogynecology at [facility]. Stress incontinence 05/18/2020 Assessment & Plan (06/22/2021 2:43 PM CDT): She has been experiencing some stress incontinence, typically when she exercises and when she coughs or sneezes. There is no dysuria or hematuria. She has tried Kegel's exercises without much success, but it sounds like a brief trial. She also discussed the problem with her dairy truck driver, Dr. Guerrero, who talked about possible surgery [...] 10/27/2018 Assessment & Plan (12/09/2018 11:19 AM VICE PRESIDENT MEDIA RELATIONS): She saw her eye doctor recently noted some possible xanthelasmas around her eyes. Her last cholesterol profile was six or seven years ago. We will check a follow-up and proceed from there. Bigeminy 07/05/2016 Assessment & Plan (10/11/2017 3:18 PM VICE PRESIDENT MEDIA RELATIONS): She was noted to have a bigeminal rhythm. This was noted on her last annual in June of last year, and has been noted by her retirement assistant doctors in the past. She has no symptoms of cardiovascular disease. She has had no previous workup except for possibly a EKG at [facility] more than 10 years ago, details unfortunately [...] daily. We discussed possible referral to an shipfitter apprentice if she has recurrent symptoms. Assessment & [...] of her feelings with the help of Adify. Since stopping the montelukast, her allergies have [...] allergy problems. She has never seen an shipfitter apprentice, but did see an ENT specialist a [...] as needed. Continue Singulair. Consider referral to shipfitter apprentice if still symptomatic. Assessment & Plan (04/23/2020 [...] Flonase. Assessment & Plan (12/09/2018 11:17 AM VICE PRESIDENT MEDIA RELATIONS): She needed a refill on singular which we sent in. Symptoms seem to be reasonably well controlled on this medication and generic Zyrtec. Continue same. Assessment & Plan (09/30/2017 1:59 PM VICE PRESIDENT MEDIA RELATIONS): She continues to have flares from time [...] weight. She would like to see a oleomargarine maker. She thinks she might need a referral, and I asked her to check with her insurance. We would be happy to provide one. Assessment & Plan (04/15/2020 2:02 PM CDT): Her weight is down a few lb. She will continue to work on appropriate diet and some weight reduction. Assessment & Plan (12/09/2018 11:18 AM VICE PRESIDENT MEDIA RELATIONS): Weight is basically unchanged. She had a baby last summer, and she had gestational diabetes which led to better eating habits.. Continue efforts. Assessment & Plan (10/11/2017 3:18 PM VICE PRESIDENT MEDIA RELATIONS): We spent a fair amount of time [...] Singulair. Assessment & Plan (10/10/2018 1:46 PM VICE PRESIDENT MEDIA RELATIONS): Complete antibiotics and other meds as prescribed [...] 2:45 PM CDT): She was seen by TABAHTA Cabral recently for a three week upper [...] Cabral. Assessment & Plan (09/19/2020 3:54 PM VICE PRESIDENT MEDIA RELATIONS): Patient has had acute rt sided low [...] refer for physical therapy in addition to patient care associate. She will also be give a short [...] 12/09/2018 Assessment & Plan (10/10/2018 1:45 PM VICE PRESIDENT MEDIA RELATIONS): Complete antibiotic as prescribed Tylenol or Motrin [...] Encounters Date Type Department Care Team Description 10/26/2025 Telephone [facility] [address] [place] [address] Rey Escobar MD Plexus 10/22/2025 Telephone [facility] [address] [place] [id number] Rey Escobar MD Needs A1C from Last 3 Months Immunizations Immunization Administration Dates Next Due Influenza, Quadrivalent, Spl it, Preservative Free, Intramuscular 08/26/2020 Influenza, Unspecified 02/11/2025(Deferred: Jossie ent Refused) Pfizer SARS-CoV-2 Monovalent Vaccination (12+ Yrs) PURPLE 05/11/2021,04/20/2021 Tdap 06/17/2018 Surgical History Surgery Date Site/Laterality Comments SECTION 07/11/2018 Dr. Guerrero, [facility]. 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 CERVIX LESION DESTRUCTION 11/18/1994 - 11/17/1995 SKIN SURGERY 12/23/2020 Right Right thumb laceration repaired. MAMMOGRAPHY 06/21/2021 Bilateral Negative, [facility]. PAP SMEAR WITH HPV 02/06/2021 Negative, Dr. Guerrero. DILATION AND CURETTAGE OF UTERUS 05/28/2022 N/A Negative for dysplasia or malignancy, [facility], Dr. Guerrero. MAMMOGRAPHY 06/23/2022 Bilateral Negative, [facility]. COLONOSCOPY 07/29/2023 N/A Small 6 mm tubular adenoma removed, Dr. Lino, [facility]. MAMMOGRAPHY 08/17/2023 Bilateral Negative, [facility]. MAMMOGRAPHY 11/04/2024 Bilateral Negative, [facility]. MAMMOGRAPHY 11/26/2024 Bilateral Negative, [facility]. Medical History Medical History Date Comments Adiposity 2010 Obesity Overweight 03/31/2014 Overweight 06/2018 [facility] Strep pharyngitis 10/10/2018 Non morbid obesity [...] then like a bad cold. Gestational diabetes 2018 Chicken pox Obesity (BMI 30.0-34.9) 01/28/2011 Obesity [...] on file Legal Sex Female 9:32 AM VICE PRESIDENT MEDIA RELATIONS Gender Identity Not on file Sexual Orientation [...] Vaccine (1 of 2) 2023 Covid-19 Vaccine (3 - season) 2025 05/11/2021, 04/20/2021 Influenza Vaccine (#1) [...] Procedure Name Priority Date/Time Associated Diagnosis Comments DIABETES EYE EXAM Routine 10/27/2025 10:53 AM VICE PRESIDENT MEDIA RELATIONS MAMMOGRAPHY Routine 11/04/2024 COLONOSCOPY Routine 07/29/2023 PAP SMEAR WITH HPV Routine 02/06/2021 from Last 3 Months or Most Recently Relevant to Health Maintenance Results * DIABETES EYE EXAM (10/27/2025 10:53 AM VICE PRESIDENT MEDIA RELATIONS) SCRIBED DIABETIC DILATED EYE EXAM Normal us Historical Provider HEALTH MAINTENANCE Final Result * MAMMOGRAPHY (11/04/2024) Mammography Normal Impressions Rey Escobar MD - 11/04/2024 Negative bilateral mammogram, 11/04/2024, [facility]. Rey Law MD - 11/04/2024 See scanned report. Rey Escobar MD HEALTH MAINTENANCE Final Resu lt * COLONOSCOPY (07/29/2023) Scribed Colonoscopy Abnormal Impressions Rey Escobar MD - 07/29/2023 Single 6 mm pedunculated polyp resected, pathology on request. Rey Law MD - 07/29/2023 See scanned report. Miguel Holloway MD HEALTH MAINTENANCE Final Result * PAP SMEAR WITH HPV (02/06/2021) Scribed Pap Smear w/HPV Normal Impressions Rey Escobar MD - 02/06/2021 Negative for intraepithelial malignancy. Rey Law MD - 02/06/2021 See scanned report [address] Dr[address] Guerrero. Pap on 02/03/2021, report on 02/06/2021. Historical Provider HEALTH MAINTENANCE Final Result from Last 3 Months or Most Recently Relevant to Health Maintenance Insurance [facility] [address] [facility] CHO[facility] PLUS [facility] CHOICE PLUS [facility] CHOICE PLUS [facility] CHOICE PLUS Care Teams Precinct Police Lieutenant Relationship Specialty Start Date End Date Rey Escobar MD [address] [place] [address] PCP - General 03/04/15 Latonia Guerrero MD [address] [place] [id number] Consulting Physician Gynecology 09/30/17 Eliceo Pena DMD [address] [place] [address] Consulting Physician Dental Research Development Director 08/26/20 Yahaira Painter NP [address] [facility] [address] [place] [address] Nurse Practitioner Gynecology 04/21/22 Nishant Bradshaw MD [address] [place] [address] Consulting Physician Urology 08/23/22 [place] [address] [place] [address] Consulting Physician Urology 10/29/22 Miguel Puente MD [address] [facility] [address] [facility] [address] [place] [address] Referring Physician Gastroenterology 07/29/23 Monique Masters, OD [address] [place] [address] Consulting Physician Optometry 04/26/25 Carolyn Da Silva MD [address] [facility] [address] [place] [address] Consulting Physician General Surgery 07/31/25
--- OUTSIDE RECORDS SUMMARY | 2025-11-08 16:17 | XMS_ITS | Encounter Summary ---
Author Organization [facility] Address [address] [place] [address] Phone Care Team Providers Care Circular Stuffer Name Role Phone Rey Escobar MD Primary Care Provider Latonia Guerrero MD Unavailable Eliceo Pena DMD Unavailable Yahaira Painter NP Unavailable [phone] Nishant Bradshaw MD Unavailable [phone] Bryce Grant MD Unavailable [phone] Miguel Puente MD Unavailable + Monique Masters OD Unavailable [phone] Carolyn Da Silva MD Unavailable [phone] Encounter Details Date Type Department Care Team (Late st Contact Info) Description 04/04/2023 Orders Only [facility] [address] [place] [address] Rey Escobar MD [address] [address] Social History Tobacco Use Types [...] on file Legal Sex Female 9:32 AM APPLICATIONS DEVELOPER Gender Identity Not on file Sexual Orientation Not on file documented as of this encounter Plan of Treatment Not on file documented as of this encounter Procedures Procedure Name Priority Date/Time Associated Diagnosis Comments SCAN - LABS 04/04/2023 documented in this encounter Results * SCAN - LABS (04/04/2023) us Rey Escobar MD Final Result documented in this encounter Visit Diagnoses Not on filedocumented in this encounter Care Teams Circular Stuffer Relationship Specialty Start Date End Date Rey Escobar MD [address] [place] [address] PCP - General 03/04/15 Latonia Guerrero MD [address] [place], [place] [id number] Consulting Physician Gynecology 09/30/17 Eliceo Pena DMD [address] [place] [address] Consulting Physician Dental Lay Brother 08/26/20 Yahaira Painter NP [address] [place] [address] Nurse Practitioner Gynecology 04/21/22 Nishant Bradshaw MD [address] [facility] [address] [place] [address] Consulting Physician Urology 08/23/22 [place] [address] [address] [place] [address] Consulting Physician Urology 10/29/22 Miguel Puente MD [address] [facility] [address] [place] [address] Referring Physician Gastroenterology 07/29/23 Monique Masters, OD [address] [place] [address] Consulting Physician Optometry 04/26/25 Carolyn Da Silva MD [address] [facility] [address] [place] [address] Consulting Physician General Surgery 07/31/25 documented as of this encounter
--- OUTSIDE RECORDS SUMMARY | 2025-11-08 16:17 | XMS_ITS | Encounter Summary ---
Author Organization [facility] Healthcare Address [address] [place] [address] Care Team Providers Care Blast Furnace Helper Name Role Phone Rey Escobar MD Primary Care Provider [phone] Latonia Guerrero MD Unavailable [phone] Eliceo Pena DMD Unavailable Yahaira Painter NP Unavailable [phone] Nishant Bradshaw MD Unavailable [phone] Bryce Grant MD Unavailable [phone] Miguel Puente MD Unavailable + Monique Masters OD Unavailable [phone] Carolyn Da Silva MD Unavailable Encounter Details Date Type Department Care Team (Late st Contact Info) Description 08/26/2020 Telephone [facility] [address] [place] [address] Jamil Hernandez, RT Social History Tobacco Use [...] on file Legal Sex Female 9:32 AM ORDER SELECTOR Gender Identity Not on file Sexual Orientation Not on file documented as of this encounter Plan of Treatment Not on file documented as of this encounter Visit Diagnoses Not on filedocumented in this encounter Additional Health Concerns Infection Onset Date Last Indicated Resolved Time COVID: Suspected 05/20/2021 05/20/2021 05/20/2021 10:01 AM CDT documented as of this encounter Care Teams Blast Furnace Helper Relationship Specialty Start Date End Date Rey Escobar MD [address] [place] [address] PCP - General 03/04/15 Latonia Guerrero MD [address] [place], [place] [id number] Consulting Physician Gynecology 09/30/17 Eliceo Pena DMD [address] [place], [place] [id number] Consulting Physician Dental Farmer Vegetable 08/26/20 Yahaira Painter, WOOD EXPERIMENTAL MECHANIC [address] [place], [place] [phone] Nurse Practitioner Gynecology 04/21/22 Nishant Bradshaw MD [address] [place] [address] Consulting Physician Urology 08/23/22 [place] [address] [place] [address] Consulting Physician Urology 10/29/22 Miguel Puente MD [address] [place] [address] Referring Physician Gastroenterology 07/29/23 Monique Masters, OD [address] [place], [place] [address] Consulting Physician Optometry 04/26/25 Carolyn Da Silva MD [address] [address] Consulting Physician General Surgery 07/31/25 documented as of this encounter
== END 2025-11-08 14:26 | disposition home or self-care (01) ==
LOC: ANHFOHIMG 14:25
PROVIDERS: PCP Internal Medicine Infectious Disease; Visit Provider Obstetrics & Gynecology Gynecology
DX: Z12.31 Encounter for screening mammogram for malignant neoplasm of breast (principal)
CPT/HCPCS: 77063; 77067